=== PATIENT | female | born 1955 | race Caucasian/White ===

== ENCOUNTER → 2016-04-14 | Outpatient (CLI) | payer OTHER ==
[~2016-04-14] MED LIST: ALDA25TA2 PO; ASPI81TA85 PO; AZIT500I PO; EXCETAB80 PO; FERR325T3 PO; FURO20VL PO; HYDR12.56 PO; LISI5TAB PO; NEXI40GR PO; SUDA30TA PO; VITA500C PO
--- NOTE | 2016-04-14 14:36 | REPMRS ---
Patient History The patient states she had a clinical breast exam in 04/27 Patient is postmenopausal. Family history of pancreatic cancer in sister at age 54. Digital Woman Screen Mammo: April 14, 2016 - Exam #: [id number] Bilateral CC and MLO view(s) were taken. Technologist: Samantha Lynn, Technologist Prior study comparison: February 25, 2015, digital woman screen mammo performed at [facility]. FINDINGS: There are scattered fibroglandular densities. There has been no change in the appearance of the mammogram from the prior studies. There is a mild amount of residual fibroglandular tissue which is fairly symmetric. There is no interval development of dominant mass, architectural distortion, or clustered microcalcification suggestive of malignancy. ASSESSMENT: BI-RADS/ACR category 1 mammogram. Negative. Recommendation Routine screening mammogram in 1 year (for women over age 40). This mammogram was interpreted with the aid of an FDA-approved computer-aided dectection system. Electronically Signed By: Sukhjinder Cerrato MD 04/14/16 [id number]
== END ==
LOC: M WHC 13:10
PROVIDERS: ATTEND Nurse Practitioner Family
DX: Z12.31 Encounter for screening mammogram for malignant neoplasm of breast (principal)

== ENCOUNTER → 2017-05-16 | Outpatient (CLI) | payer OTHER | LOC: M WHC 15:03 | DX: Z12.31 Encounter for screening mammogram for malignant neoplasm of breast (principal) | CPT/HCPCS: 77067 ==

== ENCOUNTER 2018-08-03 20:02 | Observation (INO) | payer OTHER ==
[~2018-08-03] VITALS: Ht 162.6 cm; Wt 104.8 kg
[~2018-08-03 20:02] MED LIST changes: -ECOT81TA5 PO; -LISI20TA PO; -OMEP-221 PO; -RANI15TA PO
[2018-08-03] MEDS ORDERED: RANI15TA PO (20:09)
[2018-08-03 21:01] LABS: BASO # 0.1 10^3/uL (0.0-0.2); BASO % 0.7 % (0.0-1.0); EOS # 0.1 10^3/uL (0.0-0.50); EOS % 1.4 % (0.0-3.0); HEMATOCRIT 24.1 % (36.0-47.0); LYMPH # 1.7 10^3/uL (1.5-4.5); LYMPH % 22.6 % (24.0-44.0); MEAN CORPUSCULAR HEMOGLOBIN 18.1 pg (27.0-33.0); MEAN CORPUSCULAR HGB CONC 27.4 g/dl (32.0-36.5); MONO # 0.7 10^3/uL (0.0-0.8); MONO % 9.6 % (0.0-5.0); NEUTROPHILS # 4.8 10^3/uL (1.8-7.7); NEUTROPHILS % 65.3 % (36.0-66.0); PLATELET COUNT, AUTOMATED 239 10^3/uL (150-450); RED BLOOD COUNT 3.65 10^6/uL (4.00-5.40); WHITE BLOOD COUNT 7.4 10^3/uL (4.0-10.0)
[2018-08-03 21:05] LABS: HEMOGLOBIN 6.6 g/dl (12.0-15.5)
[2018-08-03 21:11] LABS: MB/CK RELATIVE INDEX 4.25 (< OR =4); TROPONIN I 0.11 NG/ML (< 0.10)
[2018-08-03] MEDS ORDERED: LISI20TA PO (21:23)
[2018-08-03] MEDS ORDERED: OMEP-221 PO (21:23)
[2018-08-03] MEDS ORDERED: ECOT81TA5 PO (21:23)
--- NOTE | 2018-08-03 22:28 | HPEPDOC ---
General Date of Admission Aug 03, 2018 at 21:36 Chief Complaint The patient is a 62-year-old female admitted with a reason for visit of Shortne ss Of Breath. Source: Patient History of Present Illness 63 y/o F with h/o chronic iron deficiency anemia who stopped iron supplements her own due to concern of side effect(hair fall); pt went to see her PMD today for c/o worsening exertional shortness of breath for past 3 months. Pt was found with low Hb and was sent to ER for blood transfusion. In ER pt was found with vitals of BP 186/90, HR 68, RR 18, Temp 98.0, SpO2-96% on RA; EKG- NSR, Troponin 0.11; Hospitalist service was consulted to admit the pt for further management. Pt was seen and examined at bedside in ER. Daughter at bedside. Pt was resting comfortably in bed. Pt stated that she is feeling fine but c/o exertional shortness of breath. PMH- HTN, GERD, iron deficiency anemia PSxH- C section, tubal ligation Allergies- NKDA Home meds- reviewed, please refer to permanent medical records. 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 FH- reviewed non contributory Home Medications Scheduled Aspirin (Ecotrin) 81 Mg Tablet.dr, 81 MG PO DAILY, (Reported) Lisinopril/Hydrochlorothiazide (Lisinopril-Hctz 20-12.5 mg Tab) 1 Each Tablet, 1 TAB PO DAILY, (Reported) Omeprazole (Omeprazole) 40 Mg Capsule.dr, 40 MG PO DAILY, (Reported) Ranitidine Hcl (Ranitidine HCl) 150 Mg Tablet, 150 MG PO QPM, (Reported) Allergies Coded Allergies: No Known Allergies (Verified , 04/06/12) A-FIB/CHADSVASC A-FIB History Current/History of A-Fib/PAF?: No Current Oral Anticoagulant The: No Physical Examination General Exam: Positive: Alert ENT Exam: Positive: Mucous membr. moist/pink Neck Exam: Positive: Supple Chest Exam: Positive: Clear to auscultation, Normal air movement Heart Exam: Positive: Rate Normal, Normal S1, Normal S2 Abdomen Exam: Positive: Normal bowel sounds, Soft, Tenderness Extremity Exam: Positive: Normal pulses Skin Exam: Positive: Nl turgor and temperature Neuro Exam: Positive: Normal Speech, Strength at 5/5 X4 ext Psych Exam: Positive: Mood NL, Oriented x 3 Vital Signs Vital Signs Date Time Temp Pulse Resp B/P (MAP) Pulse Ox O2 Delivery O2 Flow Rate FiO2 08/03/18 21:02 65 18 97 Room Air 08/03/18 20:26 08/03/18 20:03 98.0 Laboratory Data Labs 24H Laboratory Tests 2 08/03/18 20:25: Immature Granulocyte % (Auto) 0.4, White Blood Count 7.4, Red Blood Count 3.65L, Hemoglobin 6.6*L, Hematocrit 24.1L, Mean Corpuscular Volume 66.0L, Mean Corpuscular Hemoglobin 18.1L, Mean Corpuscular Hemoglobin Concent 27.4L, Red Cell Distribution Width 17.7H, Platelet Count 239, Neutrophils (%) (Auto) 65.3, Lymphocytes (%) (Auto) 22.6L, Monocytes (%) (Auto) 9.6H, Eosinophils (%) (Auto) 1.4, Basophils (%) (Auto) 0.7, Neutrophils # (Auto) 4.8, Lymphocytes # (Auto) 1.7, Monocytes # (Auto) 0.7, Eosinophils # (Auto) 0.1, Basophils # (Auto) 0.1, Reticulocyte # (auto) 58.6, Nucleated Red Blood Cells % (auto) 0.0, Percent Reticulocyte Count 1.6H, Reticulocyte Hemoglobin Equivalent 15.8L, Total Creatine Kinase 47, Creatine Kinase MB 2.0, Creatine Kinase MB Relative Index 4.25H, Troponin I 0.11H CBC/BMP Laboratory Tests 08/03/18 20:25 Red Blood Count 3.65 L, Mean Corpuscular Volume 66.0 L, Mean Corpuscular Hemoglobin 18.1 L, Mean Corpuscular Hemoglobin Concent 27.4 L, Red Cell Distribution Width 17.7 H, Neutrophils (%) (Auto) 65.3, Lymphocytes (%) (Auto) 22.6 L, Monocytes (%) (Auto) 9.6 H, Eosinophils (%) (Auto) 1.4, Basophils (%) (Auto) 0.7, Neutrophils # (Auto) 4.8, Lymphocytes # (Auto) 1.7, Monocytes # (Auto) 0.7, Eosinophils # (Auto) 0.1, Basophils # (Auto) 0.1 Assessment/Plan 62 y/o F with h/o iron deficiency anemia was found to have low Hb. Pt denied black tarry stools. Stool occult blood test performed in ER was negative. There are no sign and symptom suggestive of active bleeding. Pt had normal bowel movement today morning. Labs reviewed. Hb 6.6 Plats 239 Pt had colonoscopy/EGD in 2011 for anemia- as per pt it was "Normal" Impression- symptomatic anemia secondary to worsening of chronic anemia. Problems (1) Symptomatic anemia Status: Acute Problem Text: will transfuse 3 units PRBC will f/u repeat H/H o/p hematology f/u (2) HTN (hypertension) Status: Chronic Problem Text: will resume home meds If BP remains elevated will consider adding new antihypertensive (3) GERD (gastroesophageal reflux disease) Status: Chronic Problem Text: home meds (4) Elevated troponin Status: Chronic Problem Text: on review of prior labs it was found out that pt does have chronic mild elevation of troponin. Might be related to demand ischemia will f/u repeat troponin, telemetry (5) Obesity Status: Chronic Problem Text: supportive care (6) Iron deficiency anemia Status: Chronic Problem Text: Pt does not want iron supplement. o/p hematology f/u Plan / VTE VTE Prophylaxis Ordered?: No VTE Exclusion Pharmacological: At Low Risk for VTE SKIP RAMIRES MD Aug 03, 2018 22:25
[2018-08-03 23:20] VITALS: BP 202/78
[2018-08-04] MEDS ORDERED: cloNIDine 0.1 MG TAB PO ONE (00:30)
[2018-08-04 01:54] LABS: INR 1.03; PROTHROMBIN TIME 13.6 SECONDS (12.1-14.4)
[2018-08-04 01:55] LABS: PARTIAL THROMBOPLASTIN TIME 27.5 SECONDS (25.4-37.6)
[2018-08-04] MEDS ORDERED: **hydrALAZINE** 10 MG TAB PO ONE (02:30)
[2018-08-04 08:55] VITALS: BP 181/70
[2018-08-04] MEDS ORDERED: OMEPRAZOLE 20 MG CAP PO SCH (09:00)
[2018-08-04] MEDS ORDERED: LISINOPRIL 20 MG TAB PO SCH (09:00)
[2018-08-04] MEDS ORDERED: ASPIRIN 81 MG ENTERIC TAB PO SCH (09:00)
[2018-08-04] MEDS ORDERED: hydroCHLOROthiazide 12.5 MG CAPSULE PO SCH (09:00)
--- NOTE | 2018-08-04 11:14 | IPNPDOC ---
Subjective Date Seen The patient was seen on 08/04/18. Subjective Chief Complaint/HPI Receiving her last unit (06/11) of PRBC - tolerating this well. No further SOB Constitutional: Denies: Chills, Fever Pulmonary: Denies: Dyspnea, Cough Cardiovascular: Denies: Chest Pain, Palpitations, Orthopnea Gastrointestinal: Denies: Nausea, Vomiting, Abdominal Pain, Diarrhea, Constipation, Melena, Hematochezia Genitourinary: Denies: Hematuria Objective Physical Examination General Exam: Positive: Alert ENT Exam: Positive: Mucous membr. moist/pink Neck Exam: Positive: Supple Chest Exam: Positive: Clear to auscultation, Normal air movement Heart Exam: Positive: Rate Normal, Normal S1, Normal S2 Abdomen Exam: Positive: Normal bowel sounds, Soft, Tenderness Extremity Exam: Positive: Normal pulses Skin Exam: Positive: Nl turgor and temperature Neuro Exam: Positive: Normal Speech, Strength at 5/5 X4 ext Psych Exam: Positive: Mood NL, Oriented x 3 A-FIB/CHADSVASC A-FIB History Current/History of A-Fib/PAF?: No Current Oral Anticoagulant The: No Assessment /Plan Problems (1) Symptomatic anemia Status: Acute Problem Text: 08/04 - receiving 3rd unti PRBC currently - get f/u CBC after that. No further dyspnea Patient denies any GI bleeding. She does have intermittent episodes of dysphasia in which food gets stuck in her esophagus and she has to vomit to clear it out. She will need EGD/Colonoscopy as outpatient (Last one in 2011) Restart iron supplement Plan outpatient hematology eval possibly ass well Patient wants to go home today after 3rd unit. (2) HTN (hypertension) Status: Chronic Problem Text: Home BP meds given at 9 am If BP remains elevated will consider adding new antihypertensive (3) GERD (gastroesophageal reflux disease) Status: Chronic Problem Text: Dysphasia as above - cont PPI and Ranitidine Will need EGD as outpatient (4) Elevated troponin Status: Chronic Problem Text: on review of prior labs it was found out that pt does have chronic mild elevation of troponin. Might be related to demand ischemia will f/u repeat troponin, telemetry (5) Obesity Status: Chronic Problem Text: supportive care (6) Iron deficiency anemia Status: Chronic Problem Text: Pt does not want iron supplement. o/p hematology f/u Plan/VTE VTE Prophylaxis Ordered?: No VTE Exclusion Pharmacological: At Low Risk for VTE Plan Family Medicine Attending Note: I saw and examined Ms. Catalan, discussed with DORON Soriano. Agree with her note as documented. I will assess her response to transfusion after the third unit is in to determine whether it safe to go home today. 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) Disposition Patient wants to go home after 3 rd unit blood - defer to attending depending on Hgb and BP this afternoon VS, I&O, 24H, Fishbone Vital Signs/I&O Vital Signs Date Time Temp Pulse Resp B/P (MAP) Pulse Ox O2 Delivery O2 Flow Rate FiO2 08/04/18 08:55 181/70 08/03/18 23:20 97.8 67 20 100 08/03/18 22:35 Room Air I&O- Last 24 Hours up to 6 AM 08/04/18 06:00 Intake Total 300 ml Output Total 300 ml Balance 0 ml Laboratory Data 24H LABS Laboratory Tests 2 08/03/18 20:25: Immature Granulocyte % (Auto) 0.4, White Blood Count 7.4, Red Blood Count 3.65L, Hemoglobin 6.6*L, Hematocrit 24.1L, Mean Corpuscular Volume 66.0L, Mean Corpuscular Hemoglobin 18.1L, Mean Corpuscular Hemoglobin Concent 27.4L, Red Cell Distribution Width 17.7H, Platelet Count 239, Neutrophils (%) (Auto) 65.3, Lymphocytes (%) (Auto) 22.6L, Monocytes (%) (Auto) 9.6H, Eosinophils (%) (Auto) 1.4, Basophils (%) (Auto) 0.7, Neutrophils # (Auto) 4.8, Lymphocytes # (Auto) 1.7, Monocytes # (Auto) 0.7, Eosinophils # (Auto) 0.1, Basophils # (Auto) 0.1, Reticulocyte # (auto) 58.6, Nucleated Red Blood Cells % (auto) 0.0, Percent Reticulocyte Count 1.6H, Reticulocyte Hemoglobin Equivalent 15.8L, Total Creatine Kinase 47, Creatine Kinase MB 2.0, Creatine Kinase MB Relative Index 4.25H, Troponin I 0.11H 08/04/18 01:08: Troponin I 0.10, Prothrombin Time 13.6, Prothromb Time International Ratio 1.03, Activated Partial Thromboplast Time 27.5 CBC/BMP Laboratory Tests 08/03/18 20:25 Red Blood Count 3.65 L, Mean Corpuscular Volume 66.0 L, Mean Corpuscular Hemoglobin 18.1 L, Mean Corpuscular Hemoglobin Concent 27.4 L, Red Cell Distribution Width 17.7 H, Neutrophils (%) (Auto) 65.3, Lymphocytes (%) (Auto) 22.6 L, Monocytes (%) (Auto) 9.6 H, Eosinophils (%) (Auto) 1.4, Basophils (%) (Auto) 0.7, Neutrophils # (Auto) 4.8, Lymphocytes # (Auto) 1.7, Monocytes # (Auto) 0.7, Eosinophils # (Auto) 0.1, Basophils # (Auto) 0.1 JUNIE LEE PA-C Aug 04, 2018 11:14 Ruben Nugent MD Aug 04, 2018 18:09
[2018-08-04 14:00] VITALS: BP_SYST 142; BP_SYST 179; BP_DIAS 81; BP_DIAS 82
[2018-08-04 14:44] LABS: HEMATOCRIT 36.7 % (36.0-47.0); MEAN CORPUSCULAR HGB CONC 29.7 g/dl (32.0-36.5); MEAN CORPUSCULAR VOLUME 70.6 fl (80.0-96.0); PLATELET COUNT, AUTOMATED 234 10^3/uL (150-450); WHITE BLOOD COUNT 8.2 10^3/uL (4.0-10.0)
[2018-08-04 14:47] LABS: HEMOGLOBIN 10.9 g/dl (12.0-15.5)
[2018-08-04 15:16] LABS: BLOOD UREA NITROGEN 12 MG/DL (7-18); CALCIUM LEVEL 9.2 MG/DL (8.8-10.2); CARBON DIOXIDE LEVEL 26 MEQ/L (21-32); CHLORIDE LEVEL 109 MEQ/L (98-107); CREATININE FOR GFR 0.97 MG/DL (0.55-1.30); GLOMERULAR FILTRATION RATE > 60.0 (>45); GLUCOSE, FASTING 112 MG/DL (70-100); POTASSIUM SERUM 3.9 MEQ/L (3.5-5.1); SODIUM LEVEL 140 MEQ/L (136-145)
--- NOTE | 2018-08-04 18:06 | DS.PDOC ---
Discharge Summary General Date of Admission Aug 03, 2018 at 21:36 Date of Discharge 08/04/18 Primary Care Physician: Benitez Andujar M.D. Attending Physician: Ruben Nugent MD Discharge Summary ADMITTING DIAGNOSES: 1. Symptomatic anemia. 2. Hypertension. 3. GERD. 4. Elevated troponin I. 5. Obesity. 6. Iron deficiency anemia. DISCHARGE DIAGNOSES: 1. Symptomatic anemia, much improved after 3 units of packed red blood cells were transfused. 2. Hypertension. 3. Elevated troponin I, subsequent value was negative and this is felt to be related to demand ischemia. 4. Iron deficiency anemia. 5. Obesity. PROCEDURES PERFORMED DURING STAY: None. ADMISSION HISTORY: Ms. Catalan is a 63 y/o F with h/o chronic iron deficiency anemia who stopped iron supplements her own due to concern of side effect(hair falling out); pt went to see her PMD today for c/o worsening exertional shortness of breath for past 3 months. Pt was found with low Hb and was sent to ER for blood transfusion. Please see the admission history and physical for the remaining details. HOSPITAL COURSE: Mrs. Catalan was admitted to the hospital with symptomatic anemia and elevated blood pressure. There was also some concern that she may be having ongoing myocardial dysfunction as she had a very mildly elevated troponin I. Subsequent troponin was negative and the belief is that the first mildly elevated value is related to demand ischemia related to her severe anemia. She received 3 units of packed blood cells and felt much better. She was insistent on going home after her repeat CBC. Her hemoglobin improved from 6.6 up to 10.9. Her aspirin was stopped today. DISCHARGE CONDITION: Stable. FOLLOW-UP: Prior to discharge an appointment was encouraged to scheduled a follow-up appointment with or Gardenia Cho NP. She will need to call the office for a follow-up appointment on Tuesday. DIET: Low-sodium. ACTIVITY: Tolerated. DISCHARGE MEDICATIONS: Please see below. ALLERGIES: Please see below. LABORATORY DATA: Please see below. TIME SPENT ON DISCHARGE: Greater than 20 minutes. Vital Signs/I&Os Vital Signs Date Time Temp Pulse Resp B/P (MAP) Pulse Ox O2 Delivery O2 Flow Rate FiO2 08/04/18 14:00 98.4 81 19 142/82 (102) 99 08/03/18 22:35 Room Air I&O- Last 24 Hours up to 6 AM 08/04/18 06:00 Intake Total 300 ml Output Total 300 ml Balance 0 ml Laboratory Data Labs 24H Laboratory Tests 2 08/03/18 20:25: Immature Granulocyte % (Auto) 0.4, White Blood Count 7.4, Red Blood Count 3.65L, Hemoglobin 6.6*L, Hematocrit 24.1L, Mean Corpuscular Volume 66.0L, Mean Corpuscular Hemoglobin 18.1L, Mean Corpuscular Hemoglobin Concent 27.4L, Red Cell Distribution Width 17.7H, Platelet Count 239, Neutrophils (%) (Auto) 65.3, Lymphocytes (%) (Auto) 22.6L, Monocytes (%) (Auto) 9.6H, Eosinophils (%) (Auto) 1.4, Basophils (%) (Auto) 0.7, Neutrophils # (Auto) 4.8, Lymphocytes # (Auto) 1.7, Monocytes # (Auto) 0.7, Eosinophils # (Auto) 0.1, Basophils # (Auto) 0.1, Reticulocyte # (auto) 58.6, Nucleated Red Blood Cells % (auto) 0.0, Percent Reticulocyte Count 1.6H, Reticulocyte Hemoglobin Equivalent 15.8L, Total Creatine Kinase 47, Creatine Kinase MB 2.0, Creatine Kinase MB Relative Index 4.25H, Troponin I 0.11H 08/04/18 01:08: Troponin I 0.10, Prothrombin Time 13.6, Prothromb Time International Ratio 1.03, Activated Partial Thromboplast Time 27.5 08/04/18 14:30: Nucleated Red Blood Cells % (auto) 0.0, Anion Gap 5L, Glomerular Filtration Rate > 60.0, Blood Urea Nitrogen 12, Creatinine 0.97, Sodium Level 140, Potassium Level 3.9, Chloride Level 109H, Carbon Dioxide Level 26, Calcium Level 9.2 CBC/BMP Laboratory Tests 08/03/18 20:25 Red Blood Count 3.65 L, Mean Corpuscular Volume 66.0 L, Mean Corpuscular Hemoglobin 18.1 L, Mean Corpuscular Hemoglobin Concent 27.4 L, Red Cell Distribution Width 17.7 H, Neutrophils (%) (Auto) 65.3, Lymphocytes (%) (Auto) 22.6 L, Monocytes (%) (Auto) 9.6 H, Eosinophils (%) (Auto) 1.4, Basophils (%) (Auto) 0.7, Neutrophils # (Auto) 4.8, Lymphocytes # (Auto) 1.7, Monocytes # (Auto) 0.7, Eosinophils # (Auto) 0.1, Basophils # (Auto) 0.1 08/04/18 14:30 Red Blood Count 5.20, Mean Corpuscular Volume 70.6 L, Mean Corpuscular Hemoglobin 21.0 L, Mean Corpuscular Hemoglobin Concent 29.7 L, Red Cell Distribution Width 21.8 H, Calcium Level 9.2 Discharge Medications Scheduled Lisinopril/Hydrochlorothiazide (Lisinopril-Hctz 20-12.5 mg Tab) 1 Each Tablet, 1 TAB PO DAILY, (Reported) Omeprazole (Omeprazole) 40 Mg Capsule.dr, 40 MG PO DAILY, (Reported) Ranitidine Hcl (Ranitidine HCl) 150 Mg Tablet, 150 MG PO QPM, (Reported) Allergies Coded Allergies: No Known Allergies (Verified , 04/06/12) Ruben Nugent MD Aug 04, 2018 18:06
--- NOTE | 2018-08-04 19:45 | ECGEPIP ---
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
[2018-08-04] MEDS ORDERED: FAMOTIDINE 20 MG TAB PO SCH (21:00)
== END 2018-08-04 18:43 | disposition home or self-care (01) ==
LOC: M ED 20:02 → M ED INP 21:36 → M MSPAV 23:19
PROVIDERS: ADMIT Internal Medicine; ATTEND Internal Medicine
DX: D50.9 Iron deficiency anemia, unspecified (principal); I10 Essential (primary) hypertension; R74.8 Abnormal levels of other serum enzymes; E66.9 Obesity, unspecified; Z68.39 Body mass index [BMI] 39.0-39.9, adult; K21.9 Gastro-esophageal reflux disease without esophagitis; R13.10 Dysphagia, unspecified; Z79.899 Other long term (current) drug therapy
CPT/HCPCS: 36415; 36430; 80048; 82550; 82553; 85025; 85027; 85046; 85610; 85730; 86850; 86900; 86901; 86920; 93005; 99285; P9016

== ENCOUNTER → 2018-08-03 | Outpatient (REF) | payer OTHER ==
[~2018-08-03] MED LIST changes: +ECOT81TA5 PO; +FURO10IN17 PO; -FURO20VL PO; +LISI20TA PO; +OMEP-221 PO; +RANI15TA PO
[2018-08-03 17:19] LABS: ALBUMIN 3.6 GM/DL (3.2-5.2); ALT/SGPT 15 U/L (12-78); BASO % 0.3 % (0.0-1.0); BILIRUBIN,TOTAL 0.6 MG/DL (0.2-1.0); BLOOD UREA NITROGEN 12 MG/DL (7-18); CALCIUM LEVEL 8.6 MG/DL (8.8-10.2); CARBON DIOXIDE LEVEL 28 MEQ/L (21-32); CHLORIDE LEVEL 107 MEQ/L (98-107); CHOLESTEROL LEVEL 148 MG/DL (<200); CREATININE FOR GFR 0.94 MG/DL (0.55-1.30); EOS # 0.1 10^3/uL (0.0-0.50); FERRITIN 3 NG/ML (8-252); FREE T4 1.26 NG/DL (0.76-1.46); GLOMERULAR FILTRATION RATE > 60.0 (>45); GLUCOSE, FASTING 98 MG/DL (70-100); HDL CHOLESTEROL 55 MG/DL (>40); HEMATOCRIT 23.9 % (36.0-47.0); IRON (FE) 16 UG/DL (50-170); LDL CHOLESTEROL 75.4 MG/DL (<100); LYMPH # 1.3 10^3/uL (1.5-4.5); LYMPH % 21.6 % (24.0-44.0); MEAN CORPUSCULAR HEMOGLOBIN 18.1 pg (27.0-33.0); MEAN CORPUSCULAR HGB CONC 27.2 g/dl (32.0-36.5); MEAN CORPUSCULAR VOLUME 66.6 fl (80.0-96.0); MONO # 0.4 10^3/uL (0.0-0.8); MONO % 7.4 % (0.0-5.0); NEUTROPHILS % 69.5 % (36.0-66.0); NON-HDL-C 93 MG/DL; PERCENT SATURATION 3.2 % (13.2-45.0); PLATELET COUNT, AUTOMATED 243 10^3/uL (150-450); RED BLOOD COUNT 3.59 10^6/uL (4.00-5.40); SODIUM LEVEL 139 MEQ/L (136-145); THYROID STIMULATING HORMONE 0.938 uIU/ML (0.358-3.740); TOTAL IRON BINDING CAPACITY 502 UG/DL (250-450); TOTAL PROTEIN 6.6 GM/DL (6.4-8.2); TRIGLYCERIDES LEVEL 88 MG/DL (<150); WHITE BLOOD COUNT 5.8 10^3/uL (4.0-10.0)
[2018-08-03 17:22] LABS: HEMOGLOBIN A1c 5.7 %
[2018-08-03 18:01] LABS: HEMOGLOBIN 6.5 g/dl (12.0-15.5)
== END ==
LOC: M SFHCPLAZ 13:12
PROVIDERS: ATTEND Physician Assistant Medical
DX: Z13.220 Encounter for screening for lipoid disorders (principal); Z77.22 Contact with and (suspected) exposure to environmental tobacco smoke (acute) (chronic); I10 Essential (primary) hypertension; K21.0 Gastro-esophageal reflux disease with esophagitis; E66.01 Morbid (severe) obesity due to excess calories

== ENCOUNTER → 2018-08-21 | Outpatient (CLI) | payer OTHER ==
[~2018-08-21] MED LIST changes: +E-Z-GAS II EFFERVESCENT PACKET (SODIUM BICARB./CITRIC ACID/SIMETHICONE) As Ordered ONE; +E-Z-HD 98% w/w 340GM SUSP BTL As Ordered ONE; +E-Z-PAQUE 96% w/w SUSP 176GM BTL As Ordered ONE; +ECOT81TA5 PO; +LISI20TA PO; +OMEP-221 PO; +RANI15TA PO
--- NOTE | 2018-08-21 19:13 | REP ---
Upper GI Air Contrast with SBFT The procedure was performed by ZAKIYA Cruz, under the the direct supervision of Dr. Hernandez. The images were reviewed with Dr. Hernandez. The district court reporter film shows normal organomegaly or pathological masses. The intestinal gas pattern appears normal. Liquid barium and gas producing crystals were given in the erect position as well as liquid barium in the prone position in order to perform a double contrast upper GI examination. The oral and pharyngeal stages of deglutition were unremarkable. Esophageal transport is efficient and there is no esophagitis, stricture, or mucosal ring noted. There is a fairly large hiatal hernia that involves a majority of the fundus of the stomach. Gastroesophageal reflux was noted as well. The stomach brewer are normally outlined. The rugal folds are smooth and regular. There is no gastritis, neoplasm, ulcer disease noted. The duodenal brewer are normally outlined. The mucosal folds are smooth and regular. There is no duodenitis, peptic ulcer disease, or neoplasm noted. The visualized portion of the proximal small bowel appears normal in course and caliber. The barium column was followed through the small bowel to the level of the terminal ileum. Small bowel transit time was approximately 20 minutes. During fluoroscopy gentle palpation shows all loops are freely mobile and pliable. There are no fixed or angulated loops. The small bowel mucosal pattern is normal in course and caliber. There is no transition to set suggest a partial small-bowel obstruction. Spot filming of the terminal ileum shows it to be unremarkable. Impression; 1. Large size hiatal hernia involving a majority of the fundus of the stomach. 2. Gastroesophageal reflux 1.2 minutes of fluoroscopy time was utilized for this procedure. Reviewed by ZAKIYA Bishop 08/21/2018 11:56 A Electronically Signed by Shiraz Hernandez MD 08/21/2018 07:04 P
== END ==
LOC: M RAD 07:49
PROVIDERS: ATTEND Physician Assistant Medical
DX: K21.0 Gastro-esophageal reflux disease with esophagitis (principal); K44.9 Diaphragmatic hernia without obstruction or gangrene

== ENCOUNTER → 2018-09-25 | Outpatient (CLI) | payer OTHER ==
[~2018-09-25] MED LIST changes: -E-Z-GAS II EFFERVESCENT PACKET (SODIUM BICARB./CITRIC ACID/SIMETHICONE) As Ordered ONE; -E-Z-HD 98% w/w 340GM SUSP BTL As Ordered ONE; -E-Z-PAQUE 96% w/w SUSP 176GM BTL As Ordered ONE
--- NOTE | 2018-09-25 15:15 | REPMRS ---
Patient History The patient states she had a clinical breast exam in 08/2018. Family history of pancreatic cancer at age 54 in sister. 3D TOMOSYNTHESIS WAS PERFORMED. The [facility] lifetime risk for breast cancer is 6.9%. Digital Woman Screen Mammo: September 25, 2018 - Exam #: [id number] Bilateral CC and MLO view(s) were taken. Technologist: Samantha Lynn, Technologist Prior study comparison: May 16, 2017, digital woman screen mammo performed at [facility]. April 14, 2016, digital woman screen mammo performed at [facility]. FINDINGS: There are scattered fibroglandular densities. There has been no change in the appearance of the mammogram from the prior studies. There is a mild amount of residual fibroglandular tissue which is fairly symmetric. There is no interval development of dominant mass, architectural distortion, or clustered microcalcification suggestive of malignancy. Assessment: BI-RADS/ACR category 1 mammogram. Negative Mammogram. Recommendation Routine screening mammogram in 1 year (for women over age 40). This mammogram was interpreted with the aid of an FDA-approved computer-aided dectection system. Electronically Signed By: Sukhjinder Cerrato MD 09/25/18 0636
== END ==
LOC: M WHC 14:15
PROVIDERS: ATTEND Physician Assistant Medical
DX: Z12.31 Encounter for screening mammogram for malignant neoplasm of breast (principal); Z80.0 Family history of malignant neoplasm of digestive organs

== ENCOUNTER 2018-10-19 10:38 | Emergency (ER) | payer OTHER ==
[~2018-10-19] VITALS: Ht 162.6 cm; Wt 102.8 kg
[2018-10-19] MEDS ORDERED: FERR32TA (10:48)
[2018-10-19] MEDS ORDERED: KETOROLAC 60 MG/2 ML VIAL (J1885) IM ONE (12:15)
--- NOTE | 2018-10-19 13:23 | REP ---
Pelvis/right hip: Three views. History: Right hip pain. The patient describes feeling a pop while walking. Findings: AP and frog-leg views of the right hip demonstrate smooth rounded femoral head and intact hip joint space. Periarticular soft tissues are unremarkable. There is some tendon insertion site spurring on the greater trochanter. Mild degenerative sclerosis is seen at the symphysis pubis. Bony pelvic ring is intact. SI joints are unremarkable. Left hip is normal in appearance. Impression: Tendon insertion site spurring greater trochanter right hip. Sclerosis in the symphysis pubis. Otherwise negative hip and pelvic radiographs. Electronically Signed by Shiraz Hernandez MD 10/19/2018 05:09 P
[2018-10-19] MEDS ORDERED: NAPR-837 PO (14:01)
[2018-10-19] MEDS ORDERED: LIDO1CRE2 TOP (14:01)
[2018-10-19 14:14] VITALS: BP 224/105
--- NOTE | 2018-10-20 07:57 | ED PDOC ---
Post-Departure Follow-Up carol platt faxed formal report of hip/pelvis film for fu Ra Rasmussen MD Oct 20, 2018 07:57
== END 2018-10-19 14:16 | disposition home or self-care (01) ==
LOC: M ED 10:38
DX: M25.752 Osteophyte, left hip (principal); M85.30 Osteitis condensans, unspecified site; I10 Essential (primary) hypertension; Z79.899 Other long term (current) drug therapy
CPT/HCPCS: 73502; 96372; 99283; J1885

== ENCOUNTER → 2018-11-07 | Outpatient (REF) | payer OTHER ==
[~2018-11-07] MED LIST changes: +FERR32TA; +LIDO1CRE2 TOP; +NAPR-837 PO
[2018-11-07 16:09] LABS: CREATININE FOR GFR 1.07 MG/DL (0.55-1.30); PERCENT SATURATION 7.6 % (13.2-45.0)
[2018-11-07 16:14] LABS: FOLATE 15.6 NG/ML
[2018-11-07 16:15] LABS: BASO % 0.4 % (0.0-1.0); EOS # 0.1 10^3/uL (0.0-0.50); EOS % 0.9 % (0.0-3.0); HEMATOCRIT 41.7 % (36.0-47.0); HEMOGLOBIN 12.6 g/dl (12.0-15.5); LYMPH # 1.3 10^3/uL (1.5-4.5); LYMPH % 18.2 % (24.0-44.0); MEAN CORPUSCULAR HGB CONC 30.2 g/dl (32.0-36.5); MEAN CORPUSCULAR VOLUME 82.7 fl (80.0-96.0); MONO # 0.3 10^3/uL (0.0-0.8); NEUTROPHILS # 5.2 10^3/uL (1.8-7.7); NEUTROPHILS % 75.2 % (36.0-66.0); PLATELET COUNT, AUTOMATED 204 10^3/uL (150-450); RED BLOOD COUNT 5.04 10^6/uL (4.00-5.40); WHITE BLOOD COUNT 6.9 10^3/uL (4.0-10.0)
[2018-11-11 00:06] LABS: ANTI-PARIETAL CELL ANTIBODY 1.4 Units (0.0-20.0); TISSUE TRANSGLUTAMINASE IgA <2 U/mL (0-3); UNITSIGA FOR GLIADIN IGA 5 units (0-19); UNITSIGG FOR GLIADIN IGG 2 units (0-19)
== END ==
LOC: M LABDRAWP 13:59
PROVIDERS: ATTEND Internal Medicine Gastroenterology
DX: D50.9 Iron deficiency anemia, unspecified (principal)

== ENCOUNTER 2018-11-17 09:03 | Day surgery (SDC) | payer OTHER ==
[~2018-11-17] VITALS: Ht 162.6 cm; Wt 100.2 kg
[~2018-11-17 09:03] MED LIST changes: -LISI20TA PO; +LISI20TA18 PO; +NS 1,000 ML IV ONE
[2018-11-17] MEDS ORDERED: PROPOFOL 200 MG/20 ML VIAL As Ordered ONE (09:05)
[2018-11-17] MEDS ORDERED: LIDOCAINE 2% INJ 100 MG/5 ML SDV (FOR ANES.) As Ordered ONE (09:18)
[2018-11-17] MEDS ORDERED: fentaNYL 100 MCG/2 ML INJECTION (J3010) As Ordered ONE (10:34)
--- NOTE | 2018-11-17 11:08 | ROOR ---
Patient Name: Samantha Catalan Procedure Date: 11/17/2018 10:10 AM Date of : 1955 Age: 63 Room: [facility] Gender: Female Note Status: Finalized Procedure: Upper GI endoscopy Indications: Iron deficiency anemia Providers: Chapito Sky MD Referring MD: Gardenia ALEXIS Requesting Provider: Medicines: Monitored Anesthesia Care Complications: No immediate complications. Procedure: Pre-Anesthesia Assessment: - Prior to the procedure, a History and Physical was performed, and patient medications and allergies were reviewed. The patient is competent. The risks and benefits of the procedure and the sedation options and risks were discussed with the patient. All questions were answered and informed consent was obtained. Patient identification and proposed procedure were verified by the physician, the nurse and the anesthesiologist in the procedure room. Mental Status Examination: alert and oriented. Airway Examination: normal oropharyngeal airway and neck mobility. Respiratory Examination: clear to auscultation. CV Examination: normal. Prophylactic Antibiotics: The patient does not require prophylactic antibiotics. Prior Anticoagulants: The patient has taken no previous anticoagulant or antiplatelet agents. ASA Grade Assessment: III - A patient with severe systemic disease. After reviewing the risks and benefits, the patient was deemed in satisfactory condition to undergo the procedure. The anesthesia plan was to use monitored anesthesia care (MAC). Immediately prior to administration of medications, the patient was re-assessed for adequacy to receive sedatives. The heart rate, respiratory rate, oxygen saturations, blood pressure, adequacy of pulmonary ventilation, and response to care were monitored throughout the procedure. The physical status of the patient was re-assessed after the procedure. The Endoscope was introduced through the mouth, and advanced to the second part of duodenum. The upper GI endoscopy was accomplished without difficulty. The patient tolerated the procedure well. Findings: The Z-line was regular and was found 35 cm from the incisors. A large hiatal hernia was present. Scattered moderate inflammation characterized by erythema, friability and granularity was found in the gastric antrum. Biopsies were taken with a cold forceps for Helicobacter pylori testing. The duodenal bulb and second portion of the duodenum were normal. Biopsies for histology were taken with a cold forceps for evaluation of celiac disease. Impression: - Z-line regular, 35 cm from the incisors. - Large hiatal hernia. - Gastritis. Biopsied. - Normal duodenal bulb and second portion of the duodenum. Biopsied. Recommendation: - Patient has a contact number available for emergencies. The signs and symptoms of potential delayed complications were discussed with the patient. Return to normal activities tomorrow. Written discharge instructions were provided to the patient. - Resume previous diet. - Continue present medications. - Follow an antireflux regimen. - Await pathology results. - Refer to a surgeon (Thoracic Surgeon) for evaluation for Hiatal hernia surgery. - Telephone GI clinic for pathology results in 2 weeks. - Return to primary care physician. Chapito Sky MD Chapito Sky MD 11/17/2018 11:07:33 AM Electronically signed by Chapito Sky MD Number of Addenda: 0 Note Initiated On: 11/17/2018 10:10 AM Estimated Blood Loss: Estimated blood loss was minimal.
--- NOTE | 2018-11-17 11:11 | ROOR ---
Patient Name: Samantha Catalan Procedure Date: 11/17/2018 10:10 AM Date of : 1955 Age: 63 Room: [facility] Gender: Female Note Status: Finalized Procedure: Colonoscopy Indications: Iron deficiency anemia Providers: Chapito Sky MD Referring MD: Gardenia ALEXIS Requesting Provider: Medicines: Monitored Anesthesia Care Complications: No immediate complications. Procedure: Pre-Anesthesia Assessment: - Prior to the procedure, a History and Physical was performed, and patient medications and allergies were reviewed. The patient is competent. The risks and benefits of the procedure and the sedation options and risks were discussed with the patient. All questions were answered and informed consent was obtained. Patient identification and proposed procedure were verified by the physician, the nurse and the anesthesiologist in the procedure room. Mental Status Examination: alert and oriented. Airway Examination: normal oropharyngeal airway and neck mobility. Respiratory Examination: clear to auscultation. CV Examination: normal. Prophylactic Antibiotics: The patient does not require prophylactic antibiotics. Prior Anticoagulants: The patient has taken no previous anticoagulant or antiplatelet agents. ASA Grade Assessment: III - A patient with severe systemic disease. After reviewing the risks and benefits, the patient was deemed in satisfactory condition to undergo the procedure. The anesthesia plan was to use monitored anesthesia care (MAC). Immediately prior to administration of medications, the patient was re-assessed for adequacy to receive sedatives. The heart rate, respiratory rate, oxygen saturations, blood pressure, adequacy of pulmonary ventilation, and response to care were monitored throughout the procedure. The physical status of the patient was re-assessed after the procedure. The Colonoscope was introduced through the anus and advanced to the terminal ileum, with identification of the appendiceal orifice and IC valve. The colonoscopy was performed without difficulty. The patient tolerated the procedure well. The quality of the bowel preparation was good. The terminal ileum, ileocecal valve, appendiceal orifice, and rectum were photographed. Scope insertion time was 3 minutes. Scope withdrawal time was 9 minutes. The total duration of the procedure was 12 minutes. Findings: The perianal and digital rectal examinations were normal. The terminal ileum appeared normal. Non-bleeding external and internal hemorrhoids were found during retroflexion. The hemorrhoids were large. No other significant abnormalities were identified in a careful examination of the remainder of the colon. Impression: - The examined portion of the ileum was normal. - Non-bleeding external and internal hemorrhoids. - No specimens collected. Recommendation: - Patient has a contact number available for emergencies. The signs and symptoms of potential delayed complications were discussed with the patient. Return to normal activities tomorrow. Written discharge instructions were provided to the patient. - High fiber diet. - Continue present medications. - Preparation H ointment: Apply externally daily for 1 week. - Repeat colonoscopy in 10 years for screening purposes. - Return to GI clinic in [facility] (address [address], [address], [place] [address]) in 4 -- 6 weeks. Please call GI clinic @ [phone] for apppointment date and time. - Check repeat labs for iron studies and CBC in 3 months after iron supplementation. - Return to primary care physician. Chapito Sky MD Chapito Sky MD 11/17/2018 11:11:00 AM Electronically signed by Chapito Sky MD Number of Addenda: 0 Note Initiated On: 11/17/2018 10:10 AM Estimated Blood Loss: Estimated blood loss: none.
[2018-11-17 11:15] VITALS: BP 175/79
== END 2018-11-17 11:31 | disposition home or self-care (01) ==
LOC: M OPP 09:03
PROVIDERS: ATTEND Internal Medicine Gastroenterology
DX: D50.9 Iron deficiency anemia, unspecified (principal); K64.8 Other hemorrhoids; K44.9 Diaphragmatic hernia without obstruction or gangrene; K29.70 Gastritis, unspecified, without bleeding; I10 Essential (primary) hypertension; K21.9 Gastro-esophageal reflux disease without esophagitis; R06.02 Shortness of breath; Z79.899 Other long term (current) drug therapy
CPT/HCPCS: 43239; 45378; 88305; J3010

== ENCOUNTER → 2018-11-30 | Outpatient (REF) | payer OTHER ==
[~2018-11-30] MED LIST changes: -LISI20TA18 PO; +LISI20TA19 PO; -NS 1,000 ML IV ONE
[2018-11-30 18:40] LABS: BASO % 0.6 % (0.0-1.0); EOS # 0.1 10^3/uL (0.0-0.50); EOS % 1.6 % (0.0-3.0); HEMATOCRIT 38.8 % (36.0-47.0); HEMOGLOBIN 12.1 g/dl (12.0-15.5); LYMPH # 1.4 10^3/uL (1.5-4.5); LYMPH % 20.4 % (24.0-44.0); MEAN CORPUSCULAR HGB CONC 31.2 g/dl (32.0-36.5); MEAN CORPUSCULAR VOLUME 83.4 fl (80.0-96.0); MONO # 0.5 10^3/uL (0.0-0.8); MONO % 7.2 % (0.0-5.0); NEUTROPHILS # 4.9 10^3/uL (1.8-7.7); NEUTROPHILS % 69.8 % (36.0-66.0); PLATELET COUNT, AUTOMATED 204 10^3/uL (150-450); RED BLOOD COUNT 4.65 10^6/uL (4.00-5.40); WHITE BLOOD COUNT 7.1 10^3/uL (4.0-10.0)
[2018-11-30 18:57] LABS: ALBUMIN 3.6 GM/DL (3.2-5.2); ALT/SGPT 15 U/L (12-78); BILIRUBIN,TOTAL 0.4 MG/DL (0.2-1.0); BLOOD UREA NITROGEN 14 MG/DL (7-18); CALCIUM LEVEL 9.6 MG/DL (8.8-10.2); CARBON DIOXIDE LEVEL 30 MEQ/L (21-32); CHLORIDE LEVEL 105 MEQ/L (98-107); CREATININE FOR GFR 0.88 MG/DL (0.55-1.30); FERRITIN 5 NG/ML (8-252); GLOMERULAR FILTRATION RATE > 60.0 (>45); GLUCOSE, FASTING 101 MG/DL (70-100); IRON (FE) 31 UG/DL (50-170); NT-PRO BNP 166 PG/ML (<125); PERCENT SATURATION 7.2 % (13.2-45.0); POTASSIUM SERUM 4.2 MEQ/L (3.5-5.1); SODIUM LEVEL 141 MEQ/L (136-145); TOTAL IRON BINDING CAPACITY 431 UG/DL (250-450)
== END ==
LOC: M SFHCPLAZ 15:13
PROVIDERS: ATTEND Physician Assistant Medical
DX: I50.9 Heart failure, unspecified (principal); Z86.2 Personal history of diseases of the blood and blood-forming organs and certain disorders involving the immune mechanism

== ENCOUNTER → 2018-12-20 | Outpatient (REF) | payer OTHER ==
[2018-12-20 15:46] LABS: ALBUMIN 3.7 GM/DL (3.2-5.2); BILIRUBIN,TOTAL 0.5 MG/DL (0.2-1.0); CALCIUM LEVEL 9.7 MG/DL (8.8-10.2); CREATININE FOR GFR 1.01 MG/DL (0.55-1.30); GLOMERULAR FILTRATION RATE 58.7 (>45); POTASSIUM SERUM 4.2 MEQ/L (3.5-5.1); TOTAL PROTEIN 7.6 GM/DL (6.4-8.2)
== END ==
LOC: M SFHCPLAZ 13:35
PROVIDERS: ATTEND Physician Assistant Medical
DX: I10 Essential (primary) hypertension (principal)

== ENCOUNTER → 2019-01-26 | Outpatient (REF) | payer OTHER ==
[2019-01-26 13:50] LABS: APPEARANCE, URINE CLEAR (CLEAR); BACTERIA, URINE AUTO 1+ (NEGATIVE); BILIRUBIN, URINE AUTO NEGATIVE (NEGATIVE); BLOOD, URINE BLOOD 2+ (NEGATIVE); COLOR, URINE YELLOW (YELLOW); GLUCOSE, URINE (UA) AUTO NEGATIVE (NEGATIVE); KETONE, URINE AUTO NEGATIVE (NEGATIVE); LEUKOCYTE ESTERASE, URINE AUTO NEGATIVE (NEGATIVE); MUCUS, URINE SMALL (NEGATIVE); NITRITE, URINE AUTO NEGATIVE (NEGATIVE); PROTEIN, URINE AUTO NEGATIVE (NEGATIVE); RBC, URINE AUTO 2 /HPF (0-3); SPECIFIC GRAVITY URINE AUTO 1.009 (1.002-1.035); SQUAMOUS EPITHELIAL CELL UR AU 1 /HPF (0-6); UROBILINOGEN, URINE AUTO 0.2 mg/dL (0.0-2.0); WBC, URINE AUTO 1 /HPF (0-3)
== END ==
LOC: M SFHCPLAZ 13:22
PROVIDERS: ATTEND Nurse Practitioner Family
DX: N93.9 Abnormal uterine and vaginal bleeding, unspecified (principal)

== ENCOUNTER → 2019-02-08 | Outpatient (CLI) | payer OTHER ==
--- NOTE | 2019-02-08 14:07 | REP ---
Pelvic sonography: History: Evaluate uterus and ovaries. Vaginal bleeding. Comparison abdomen CT study July 25, 2012. Findings: Transabdominal and transvaginal scanning are performed. Uterine dimensions are normal at 6.4 x 3.7 x 4.3 cm. Endometrial echo 0.9 cm in thickness. Uterine texture is somewhat heterogeneous. No focal uterine mass is seen. Visualized urinary bladder brewer are smooth. There is no evidence of ovarian mass or cyst on either side. Right ovary dimensions are 5.2 x 2.4 x 2.1 cm. Left ovary measures 3.5 x 1.9 x 2.6 cm. Impression: No abnormality noted. Unreviewed
== END ==
LOC: M RAD 12:46
PROVIDERS: ATTEND Nurse Practitioner Family
DX: N93.9 Abnormal uterine and vaginal bleeding, unspecified (principal)

== ENCOUNTER → 2019-02-13 | Outpatient (REF) | payer OTHER | LOC: M SFHCWAGY 10:07 | PROVIDERS: ATTEND Nurse Practitioner Family | DX: Z12.4 Encounter for screening for malignant neoplasm of cervix (principal) ==

== ENCOUNTER → 2019-03-01 | Outpatient (REF) | payer OTHER ==
[2019-03-01 17:20] LABS: BASO % 0.6 % (0.0-1.0); EOS # 0.1 10^3/uL (0.0-0.5); EOS % 1.2 % (0.0-3.0); HEMATOCRIT 43.9 % (36.0-47.0); HEMOGLOBIN 13.6 g/dl (12.0-15.5); LYMPH # 1.6 10^3/uL (1.5-5.0); LYMPH % 22.2 % (24.0-44.0); MEAN CORPUSCULAR HEMOGLOBIN 27.7 pg (27.0-33.0); MEAN CORPUSCULAR VOLUME 89.4 fl (80.0-96.0); MONO # 0.5 10^3/uL (0.0-0.8); MONO % 6.8 % (0.0-5.0); NEUTROPHILS % 68.8 % (36.0-66.0); PLATELET COUNT, AUTOMATED 221 10^3/uL (150-450); RED BLOOD COUNT 4.91 10^6/uL (4.00-5.40); WHITE BLOOD COUNT 7.2 10^3/uL (4.0-10.0)
[2019-03-01 17:23] LABS: HEMATOCRIT 43.9 % (36.0-47.0)
[2019-03-01 17:44] LABS: ALBUMIN 3.6 GM/DL (3.2-5.2); ALT/SGPT 17 U/L (12-78); BILIRUBIN,TOTAL 0.4 MG/DL (0.2-1.0); BLOOD UREA NITROGEN 16 MG/DL (7-18); CALCIUM LEVEL 9.5 MG/DL (8.8-10.2); CARBON DIOXIDE LEVEL 28 MEQ/L (21-32); CHLORIDE LEVEL 108 MEQ/L (98-107); CREATININE FOR GFR 0.96 MG/DL (0.55-1.30); FERRITIN 10 NG/ML (8-252); GLOMERULAR FILTRATION RATE > 60.0 (>45); GLUCOSE, FASTING 149 MG/DL (70-100); IRON (FE) 44 UG/DL (50-170); POTASSIUM SERUM 3.8 MEQ/L (3.5-5.1); SODIUM LEVEL 142 MEQ/L (136-145); TOTAL PROTEIN 7.3 GM/DL (6.4-8.2)
[2019-03-01 17:49] LABS: FOLATE 13.7 NG/ML (>5.4); VITAMIN B12 LEVEL 249 PG/ML (247-911)
[2019-03-04 00:06] LABS: H PYLORI SERUM QUANT IGM <9.0 units (0.0-8.9); H PYLORI SERUM QUANT IgG ABY 1.44 (0.00-0.79)
== END ==
LOC: M SFHCPLAZ 15:40
PROVIDERS: ATTEND Physician Assistant Medical
DX: I10 Essential (primary) hypertension (principal); Z86.2 Personal history of diseases of the blood and blood-forming organs and certain disorders involving the immune mechanism; K21.0 Gastro-esophageal reflux disease with esophagitis

== ENCOUNTER → 2019-04-05 | Outpatient (REF) | payer OTHER ==
[2019-04-05 15:26] LABS: BASO # 0.1 10^3/uL (0.0-0.2); BASO % 0.7 % (0.0-1.0); EOS # 0.1 10^3/uL (0.0-0.5); EOS % 1.4 % (0.0-3.0); HEMATOCRIT 43.2 % (36.0-47.0); HEMOGLOBIN 13.6 g/dl (12.0-15.5); LYMPH # 2.1 10^3/uL (1.5-5.0); LYMPH % 24.2 % (24.0-44.0); MEAN CORPUSCULAR HEMOGLOBIN 28.2 pg (27.0-33.0); MEAN CORPUSCULAR HGB CONC 31.5 g/dl (32.0-36.5); MEAN CORPUSCULAR VOLUME 89.4 fl (80.0-96.0); MONO # 0.6 10^3/uL (0.0-0.8); NEUTROPHILS # 5.9 10^3/uL (1.5-8.5); NEUTROPHILS % 66.4 % (36.0-66.0); PLATELET COUNT, AUTOMATED 225 10^3/uL (150-450); RED BLOOD COUNT 4.83 10^6/uL (4.00-5.40); WHITE BLOOD COUNT 8.8 10^3/uL (4.0-10.0)
[2019-04-05 15:32] LABS: FERRITIN 17 NG/ML (8-252); IRON (FE) 71 UG/DL (50-170)
== END ==
LOC: M SFHCPLAZ 13:46
PROVIDERS: ATTEND Physician Assistant Medical
DX: Z86.2 Personal history of diseases of the blood and blood-forming organs and certain disorders involving the immune mechanism (principal)

== ENCOUNTER → 2019-06-15 | Outpatient (REF) | payer OTHER | LOC: M SFHCWAGY 19:30 | PROVIDERS: ATTEND Nurse Practitioner Family | DX: R87.615 Unsatisfactory cytologic smear of cervix (principal); N85.01 Benign endometrial hyperplasia ==

== ENCOUNTER → 2019-07-12 | Outpatient (CLI) | payer OTHER ==
--- NOTE | 2019-07-12 16:53 | REP ---
PELVIC ULTRASOUND: Real-time sonographic evaluation of the pelvis performed utilizing transabdominal and endovaginal technique. Bladder is empty. Uterus measures 6.8 x 4.1 x 5.0 cm. Myometrial echotexture is diffusely heterogeneous. There is endometrial thickening, with maximum thickness 14 mm. I cannot exclude endometrial hyperplasia or neoplasm. Uterus is retroverted. Right ovary measures 4.6 x 1.8 x 2.0 cm. Left ovary measures 2.1 x 1.4 x 1.5 cm. There is a cystic structure along the margin of the right ovary 1.6 cm in diameter. There is no other evidence of adnexal mass. There is no free fluid. IMPRESSION: Thickened endometrium up to 14 mm in AP dimension. I cannot exclude endometrial hyperplasia or neoplasm. Consider endometrial sampling. There is a cystic structure along the margin of the right ovary 1.6 cm in diameter. This is of doubtful significance.
== END ==
LOC: M WHC 13:58
PROVIDERS: ATTEND Nurse Practitioner Family
DX: N85.01 Benign endometrial hyperplasia (principal)

== ENCOUNTER → 2019-07-24 | Outpatient (REF) | payer OTHER ==
[~2019-07-24] MED LIST changes: +CYAN500T8 PO; +MEDR10TA PO
== END ==
LOC: M SFHCPLAZ 12:25
PROVIDERS: ATTEND Family Medicine
DX: Z53.9 Procedure and treatment not carried out, unspecified reason (principal); I10 Essential (primary) hypertension; Z86.2 Personal history of diseases of the blood and blood-forming organs and certain disorders involving the immune mechanism

== ENCOUNTER → 2019-07-24 | Outpatient (CLI) | payer OTHER ==
[2019-07-24 15:36] LABS: BASO % 0.5 % (0.0-1.0); EOS # 0.1 10^3/uL (0.0-0.5); EOS % 0.8 % (0.0-3.0); HEMATOCRIT 42.4 % (36.0-47.0); LYMPH # 1.7 10^3/uL (1.5-5.0); LYMPH % 19.2 % (24.0-44.0); MEAN CORPUSCULAR HEMOGLOBIN 30.2 pg (27.0-33.0); MEAN CORPUSCULAR VOLUME 91.4 fl (80.0-96.0); MONO # 0.5 10^3/uL (0.0-0.8); MONO % 5.4 % (0.0-5.0); NEUTROPHILS # 6.4 10^3/uL (1.5-8.5); NEUTROPHILS % 73.8 % (36.0-66.0); PLATELET COUNT, AUTOMATED 230 10^3/uL (150-450); RED BLOOD COUNT 4.64 10^6/uL (4.00-5.40); WHITE BLOOD COUNT 8.7 10^3/uL (4.0-10.0)
[2019-07-24 16:02] LABS: PERCENT SATURATION 15.8 % (13.2-45.0)
[2019-07-24 16:10] LABS: FOLATE 14.7 NG/ML
== END ==
LOC: M LAB 14:22
PROVIDERS: ATTEND Internal Medicine Gastroenterology
DX: B96.81 Helicobacter pylori [H. pylori] as the cause of diseases classified elsewhere (principal)

== ENCOUNTER → 2019-07-25 | Outpatient (CLI) | payer OTHER ==
--- NOTE | 2019-07-25 22:44 | ECHO ---
DATE OF PROCEDURE: 07/25/2019 REFERRING PHYSICIAN: Benitez Andujar MD PATIENT LOCATION: Outpatient. REASON FOR STUDY: Aortic stenosis. 2D MEASUREMENTS: Aorta: 2.9 cm LA: 3.8 cm IVC: 0.9 cm DOPPLER MEASUREMENTS: Peak velocity across the aortic valve: 1.8 m/s Peak velocity across the LVOT: 1.2 m/s Peak gradient across the aortic valve: 13 mmHg Mean gradient across the aortic valve: 6 mmHg Mitral E: 0.8, Mitral A: 1.0 with a ratio of 0.8 2D COMMENTS: 1. Normal left ventricular size, wall thickness and normal global left ventricular systolic function. The estimated left ventricular systolic ejection fraction is 60 to 65%. 2. Normal left atrium. Normal right atrium and right ventricle. 3. The atrial septum appeared to be normal without evidence of defect or shunt. 4. Normal aortic root. 5. Trace to small pericardial effusion noted, no evidence of cardiac tamponade. 6. Mildly calcified aortic valve with normal leaflet excursion. Minimally calcified mitral annulus with normal anterior mitral valve leaflet motion. Normal tricuspid valve. The pulmonic valve also appeared to be normal as well as the proximal pulmonary artery branches. The inferior vena cava in limited views appeared to be normal in size. DOPPLER: Doppler detects trace mitral regurgitation. Trace pulmonic regurgitation also noted in limited views. Abnormal relaxation pattern was noted across the mitral valve leaflets as well as the mitral valve annulus consistent with features of grade 1 left ventricular diastolic dysfunction. IMPRESSION 1. Normal global left ventricular systolic function. There are some features of left ventricular diastolic dysfunction manifested by abnormal relaxation. 2. Aortic valve sclerosis without stenosis or aortic regurgitation. 3. Trace mitral regurgitation. 4. Trace to small pericardial effusion, no evidence of cardiac tamponade. 5. Aortic valve sclerosis with trivial aortic stenosis but no aortic regurgitation.
== END ==
LOC: M CARPUL 08:21
PROVIDERS: ATTEND Family Medicine
DX: I35.0 Nonrheumatic aortic (valve) stenosis (principal)

== ENCOUNTER → 2019-07-30 | Outpatient (CLI) | payer OTHER | LOC: M PLALAB 14:23 | PROVIDERS: ATTEND Family Medicine | DX: Z86.2 Personal history of diseases of the blood and blood-forming organs and certain disorders involving the immune mechanism (principal); Z53.9 Procedure and treatment not carried out, unspecified reason ==

== ENCOUNTER → 2019-07-31 | Outpatient (CLI) | payer OTHER ==
[2019-07-31 09:06] LABS: INR 1.11
[2019-07-31 09:07] LABS: CHOLESTEROL RISK RATIO 3.525 (<5); PARTIAL THROMBOPLASTIN TIME 26.2 SECONDS (25.0-38.4)
[2019-07-31 09:28] LABS: HEMOGLOBIN A1c 6.1 %
== END ==
LOC: M LAB 08:15
PROVIDERS: ATTEND Family Medicine
DX: Z86.2 Personal history of diseases of the blood and blood-forming organs and certain disorders involving the immune mechanism (principal); I10 Essential (primary) hypertension

== ENCOUNTER 2019-08-03 06:15 | Day surgery (SDC) | payer OTHER ==
[~2019-08-03] VITALS: Ht 162.6 cm; Wt 104.3 kg
[~2019-08-03 06:15] MED LIST changes: +LIDOCAINE 1% MDV 20ML VIAL SQ PRN
[2019-08-03] MEDS ORDERED: LR 1,000 ML IV ONE (06:30)
[2019-08-03] MEDS ORDERED: LIDOCAINE 2% 100MG/5ML SDV (FOR ANES.) As Ordered ONE (06:59)
[2019-08-03] MEDS ORDERED: propofoL 200 MG/20 ML VIAL As Ordered ONE (06:59)
[2019-08-03] MEDS ORDERED: fentaNYL 250 MCG/5 ML INJECTION (J3010) As Ordered ONE (06:59)
[2019-08-03] MEDS ORDERED: KETOROLAC 60 MG/2 ML VIAL As Ordered ONE (06:59)
[2019-08-03] MEDS ORDERED: MIDAZOLAM INJ 2MG/2ML VIAL (J2250 PER 1MG) As Ordered ONE (06:59)
[2019-08-03] MEDS ORDERED: ONDANSETRON 4MG/2ML VIAL As Ordered ONE (06:59)
[2019-08-03] MEDS ORDERED: dexameTHASONE 4 MG/ML 1ML VIAL (J1100 PER 1MG) As Ordered ONE (06:59)
[2019-08-03] MEDS ORDERED: ROCURONIUM BROMIDE 50 MG/5 ML VIAL As Ordered ONE (07:53)
[2019-08-03] MEDS ORDERED: SUCCINYLCHOLINE 100 MG/5 ML SYRINGE (J0330) As Ordered ONE (07:53)
[2019-08-03] MEDS ORDERED: SUGAMMADEX SODIUM 500 MG/5 ML VIAL (BRIDION) As Ordered ONE (08:05)
[2019-08-03] MEDS ORDERED: ePHEDrine SULFATE 25 MG/5 ML(5MG/ML) SYRINGE As Ordered ONE (08:12)
[2019-08-03] MEDS ORDERED: PERCOCET 5MG/325MG TAB PO PRN (08:45)
[2019-08-03] MEDS ORDERED: LR 1,000 ML IV SCH (08:45)
[2019-08-03] MEDS ORDERED: METOCLOPRAMIDE INJ 10MG/2ML VIAL (J2765 PER 1) IV PRN (08:45)
[2019-08-03] MEDS ORDERED: fentaNYL 100 MCG/2 ML INJECTION (J3010) IV PRN (08:45)
[2019-08-03] MEDS ORDERED: ONDANSETRON 4MG/2ML VIAL IV PRN (08:45)
[2019-08-03 09:25] VITALS: BP 163/91
--- NOTE | 2019-08-03 11:16 | ROOPDOC ---
[facility] Report Of Operation Report of Operation DATE OF PROCEDURE: 08/03/19 PREOPERATIVE DIAGNOSES: 1. Postmenopausal bleeding. POSTOPERATIVE DIAGNOSES: 1. Endometrial polyp. PROCEDURE PERFORMED: Hysteroscopy, dilation and curettage with MyoSure. SURGEON: Felicia Bernal MD CUFF STITCHER: None. ANESTHESIA: General ESTIMATED BLOOD LOSS: 5ml IV FLUIDS: 900 mL of lactated Ringer's solution. URINE OUTPUT: Not obtained. PREOPERATIVE ANTIBIOTICS: None. OPERATIVE FINDINGS: Patient with 3 anterior endometrial polyps, approximately 1 cm each. Bilateral ostia was visualized. Otherwise, normal appearing endometrial cavity. DESCRIPTION OF PROCEDURE: After informed consent was obtained written consent was reviewed, the patient brought to operating room where she was placed under general anesthesia. She was then placed in lithotomy position and was prepped and draped in normal sterile fashion. Time-out in the operating room was then performed identifying the patient, procedure be performed as well as drug allergies. [place] speculum was placed revealing the cervix. Anterior lip of the cervix grasped with a single-tooth tenaculum. The uterus then sounded to 9 cm. The cervix then sequentially dilated using Hanks dilators. Hysteroscope was then advanced through the cervical os and endometrial cavity was observed with the above-noted findings. MyoSure device was then placed in the hysteroscope and endometrial polyps where morcellated. Hysteroscope was then removed as well as the MyoSure. Sharp curette was then advanced through the cervical os to the level of the fundus and the uterus curetted in a 360 degree fashion. Tissue was obtained and this was sent to pathology for evaluation. The single-tooth tenaculum was then removed. Tenaculum sites were noted be hemostatic. The speculum was then removed. The patient was then taken out of lithotomy position, was awakened from general anesthesia and taken recovery in stable condition. FELICIA BERNAL MD. Aug 03, 2019 11:16
[2019-08-03] MEDS ORDERED: KETOROLAC 30 MG/ML 1ML VIAL IV PRN (14:00)
== END 2019-08-03 09:38 | disposition home or self-care (01) ==
LOC: M SDC 06:15
PROVIDERS: ATTEND Obstetrics & Gynecology
DX: N84.0 Polyp of corpus uteri (principal); I11.0 Hypertensive heart disease with heart failure; K44.9 Diaphragmatic hernia without obstruction or gangrene; K21.0 Gastro-esophageal reflux disease with esophagitis; Z86.2 Personal history of diseases of the blood and blood-forming organs and certain disorders involving the immune mechanism; R09.82 Postnasal drip; E66.01 Morbid (severe) obesity due to excess calories; Z68.39 Body mass index [BMI] 39.0-39.9, adult; I50.32 Chronic diastolic (congestive) heart failure; I27.20 Pulmonary hypertension, unspecified; I35.0 Nonrheumatic aortic (valve) stenosis; E53.8 Deficiency of other specified B group vitamins; Z79.899 Other long term (current) drug therapy; Z79.890 Hormone replacement therapy
CPT/HCPCS: 36415; 58558; 86850; 86900; 86901; 88305; J0330; J1100; J1885; J2250; J2405; J3010

== ENCOUNTER → 2020-01-31 | Outpatient (REF) | payer OTHER ==
[~2020-01-31] MED LIST changes: -LIDOCAINE 1% MDV 20ML VIAL SQ PRN; -LISI20TA19 PO; +LISI20TA35 PO
[2020-01-31 14:39] LABS: ALBUMIN 3.7 GM/DL (3.2-5.2); BILIRUBIN,TOTAL 0.7 MG/DL (0.2-1.0); CALCIUM LEVEL 9.1 MG/DL (8.8-10.2); CREATININE FOR GFR 0.99 MG/DL (0.55-1.30); GLOMERULAR FILTRATION RATE 59.9 (>45); POTASSIUM SERUM 4.1 MEQ/L (3.5-5.1); TOTAL PROTEIN 7.1 GM/DL (6.4-8.2)
[2020-02-07 14:09] LABS: E001-IgE Cat Epith/Dander < 0.10 kU/L (Class 0); E005-IgE Dog Dander < 0.10 kU/L (Class 0); M006-IgE Alternaria alternata < 0.10 kU/L (Class 0)
== END ==
LOC: M SFHCPLAZ 11:14
PROVIDERS: ATTEND Physician Assistant Medical
DX: I50.32 Chronic diastolic (congestive) heart failure (principal); J30.1 Allergic rhinitis due to pollen

== ENCOUNTER → 2020-01-31 | Outpatient (CLI) | payer OTHER ==
--- NOTE | 2020-01-31 11:44 | REPPI ---
INDICATION: CHF COMPARISON: 04/07/2012 TECHNIQUE: PA and lateral. FINDINGS: The mediastinum and cardiac silhouette are normal/stable. Large hiatal hernia again noted.. The lung covarrubias are clear and without acute consolidation, effusion, or pneumothorax. The skeletal structures are intact and normal. IMPRESSION: No acute cardiopulmonary process. Large hiatal hernia. <Electronically signed by Finn Cassidy > 01/31/20 [id number]
== END ==
LOC: M PLAIMG 11:23
PROVIDERS: ATTEND Physician Assistant Medical
DX: I50.32 Chronic diastolic (congestive) heart failure (principal)

== ENCOUNTER → 2020-04-16 | Outpatient (CLI) | payer MEDICARE, OTHER ==
[~2020-04-16] MED LIST changes: +CYAN500T14 PO; -CYAN500T8 PO
--- NOTE | 2020-04-16 14:36 | REPMRS ---
Patient History The patient states she has not had a clinical breast exam in over a year. Family history of pancreatic cancer at age 54 in sister. 3D TOMOSYNTHESIS WAS PERFORMED. [facility] lifetime risk for [facility] cancer is 6.6%. [place] breast density b. Digital Woman Screen Mammo: April 16, 2020 - Exam #: [id number] Bilateral CC and MLO view(s) were taken. Technologist: Madison Ohara, Technologist Prior study comparison: September 25, 2018, bilateral digital woman screen mammo performed at [facility]. May 16, 2017, digital woman screen mammo performed at [facility]. FINDINGS: There are scattered fibroglandular densities. There has been no change in the appearance of the mammogram from the prior studies. There is a mild amount of residual fibroglandular tissue which is fairly symmetric. There is no interval development of dominant mass, architectural distortion, or clustered microcalcification suggestive of malignancy. Assessment: BI-RADS/ACR category 1 mammogram. Negative Mammogram. Recommendation Routine screening mammogram in 1 year (for women over age 40). This mammogram was interpreted with the aid of an FDA-approved computer-aided dectection system. Electronically Signed By: Sukhjinder Cerrato MD 04/16/20 [id number]
== END ==
LOC: M WHC 13:27
PROVIDERS: ATTEND Physician Assistant Medical
DX: Z12.31 Encounter for screening mammogram for malignant neoplasm of breast (principal)

== ENCOUNTER → 2020-08-21 | Outpatient (CLI) | payer MEDICARE, OTHER ==
[2020-08-21 10:27] LABS: BASO % 0.4 % (0.0-1.0); EOS # 0.1 10^3/uL (0.0-0.5); EOS % 1.6 % (0.0-3.0); HEMATOCRIT 41.9 % (36.0-47.0); HEMOGLOBIN 13.2 g/dl (12.0-15.5); LYMPH # 1.4 10^3/uL (1.5-5.0); LYMPH % 20.3 % (24.0-44.0); MEAN CORPUSCULAR HEMOGLOBIN 27.7 pg (27.0-33.0); MEAN CORPUSCULAR HGB CONC 31.5 g/dl (32.0-36.5); MEAN CORPUSCULAR VOLUME 87.8 fl (80.0-96.0); MONO # 0.5 10^3/uL (0.0-0.8); MONO % 6.6 % (2.0-8.0); NEUTROPHILS # 4.8 10^3/uL (1.5-8.5); NEUTROPHILS % 70.7 % (36.0-66.0); PLATELET COUNT, AUTOMATED 197 10^3/uL (150-450); RED BLOOD COUNT 4.77 10^6/uL (4.00-5.40); WHITE BLOOD COUNT 6.8 10^3/uL (4.0-10.0)
[2020-08-21 11:01] LABS: ALBUMIN 3.6 GM/DL (3.2-5.2); ALT/SGPT 21 U/L (12-78); BILIRUBIN,TOTAL 0.9 MG/DL (0.2-1.0); BLOOD UREA NITROGEN 14 MG/DL (7-18); CALCIUM LEVEL 9.1 MG/DL (8.8-10.2); CARBON DIOXIDE LEVEL 31 MEQ/L (21-32); CHLORIDE LEVEL 109 MEQ/L (98-107); CHOLESTEROL LEVEL 172 MG/DL (<200); CHOLESTEROL RISK RATIO 2.819 (<5); CREATININE FOR GFR 0.84 MG/DL (0.55-1.30); GLOMERULAR FILTRATION RATE > 60.0 (>45); GLUCOSE, FASTING 100 MG/DL (70-100); HDL CHOLESTEROL 61 MG/DL (>40); LDL CHOLESTEROL 94 MG/DL (<100); NON-HDL-C 111 MG/DL; NT-PRO BNP 325 PG/ML (<125); POTASSIUM SERUM 3.9 MEQ/L (3.5-5.1); SODIUM LEVEL 142 MEQ/L (136-145); TOTAL PROTEIN 6.8 GM/DL (6.4-8.2); TRIGLYCERIDES LEVEL 84 MG/DL (<150)
== END ==
LOC: M LAB 09:20
PROVIDERS: ATTEND Physician Assistant Medical
DX: I11.0 Hypertensive heart disease with heart failure (principal); I50.32 Chronic diastolic (congestive) heart failure; Z13.220 Encounter for screening for lipoid disorders

== ENCOUNTER → 2020-12-09 | Outpatient (CLI) | payer MEDICARE, OTHER ==
[2020-12-09 12:27] LABS: ALBUMIN 3.5 GM/DL (3.2-5.2); ALT/SGPT 22 U/L (12-78); BILIRUBIN,TOTAL 0.9 MG/DL (0.2-1.0); BLOOD UREA NITROGEN 13 MG/DL (7-18); CALCIUM LEVEL 9.1 MG/DL (8.8-10.2); CARBON DIOXIDE LEVEL 32 MEQ/L (21-32); CHLORIDE LEVEL 107 MEQ/L (98-107); CREATININE FOR GFR 0.95 MG/DL (0.55-1.30); GLOMERULAR FILTRATION RATE > 60.0 (>45); GLUCOSE, FASTING 95 MG/DL (70-100); NT-PRO BNP 813 PG/ML (<125); POTASSIUM SERUM 4.3 MEQ/L (3.5-5.1); SODIUM LEVEL 142 MEQ/L (136-145); TOTAL PROTEIN 6.9 GM/DL (6.4-8.2)
== END ==
LOC: M LAB 10:59
PROVIDERS: ATTEND Physician Assistant Medical
DX: I50.32 Chronic diastolic (congestive) heart failure (principal)

== ENCOUNTER → 2021-03-26 | Outpatient (CLI) | payer MEDICARE, OTHER ==
[2021-03-26 11:15] LABS: ALBUMIN 3.3 GM/DL (3.2-5.2); ALT/SGPT 21 U/L (12-78); BLOOD UREA NITROGEN 13 MG/DL (7-18); CALCIUM LEVEL 9.3 MG/DL (8.8-10.2); CARBON DIOXIDE LEVEL 28 MEQ/L (21-32); CHLORIDE LEVEL 106 MEQ/L (98-107); CREATININE FOR GFR 0.82 MG/DL (0.55-1.30); GLOMERULAR FILTRATION RATE > 60.0 (>45); GLUCOSE, FASTING 112 MG/DL (70-100); NT-PRO BNP 547 PG/ML (<125); POTASSIUM SERUM 3.8 MEQ/L (3.5-5.1); SODIUM LEVEL 139 MEQ/L (136-145); TOTAL PROTEIN 7.2 GM/DL (6.4-8.2)
[2021-03-26 11:21] LABS: HEMOGLOBIN A1c 5.9 %
== END ==
LOC: M LAB 09:06
PROVIDERS: ATTEND Physician Assistant Medical
DX: R73.01 Impaired fasting glucose (principal); I50.32 Chronic diastolic (congestive) heart failure

== ENCOUNTER → 2021-06-02 | Outpatient (CLI) | payer MEDICARE, OTHER ==
[~2021-06-02] MED LIST changes: -OMEP-221 PO; +OMEP40CA5 PO
== END ==
LOC: M WHC 13:20
PROVIDERS: ATTEND Physician Assistant Medical
DX: Z12.31 Encounter for screening mammogram for malignant neoplasm of breast (principal); Z13.820 Encounter for screening for osteoporosis; Z78.0 Asymptomatic menopausal state; M85.89 Other specified disorders of bone density and structure, multiple sites

== ENCOUNTER → 2021-06-02 | Outpatient (CLI) | payer MEDICARE, OTHER ==
[2021-06-02 15:24] LABS: ALBUMIN 3.4 GM/DL (3.2-5.2); ALT/SGPT 20 U/L (12-78); BILIRUBIN,TOTAL 0.5 MG/DL (0.2-1.0); BLOOD UREA NITROGEN 16 MG/DL (7-18); CALCIUM LEVEL 8.8 MG/DL (8.8-10.2); CARBON DIOXIDE LEVEL 26 MEQ/L (21-32); CHLORIDE LEVEL 110 MEQ/L (98-107); CREATININE FOR GFR 0.97 MG/DL (0.55-1.30); GLOMERULAR FILTRATION RATE > 60.0 (>45); GLUCOSE, FASTING 123 MG/DL (70-100); NT-PRO BNP 311 PG/ML (<125); SODIUM LEVEL 142 MEQ/L (136-145); TOTAL PROTEIN 7.3 GM/DL (6.4-8.2)
== END ==
LOC: M LAB 14:28
PROVIDERS: ATTEND Physician Assistant Medical
DX: I50.32 Chronic diastolic (congestive) heart failure (principal)

== ENCOUNTER → 2021-07-08 | Outpatient (CLI) | payer MEDICARE, OTHER ==
[2021-07-08 13:33] LABS: BASO % 0.6 % (0.0-1.0); EOS # 0.1 10^3/uL (0.0-0.5); EOS % 1.9 % (0.0-3.0); HEMATOCRIT 42.4 % (36.0-47.0); HEMOGLOBIN 13.7 g/dl (12.0-15.5); LYMPH # 1.5 10^3/uL (1.5-5.0); LYMPH % 21.3 % (24.0-44.0); MEAN CORPUSCULAR HEMOGLOBIN 29.1 pg (27.0-33.0); MEAN CORPUSCULAR HGB CONC 32.3 g/dl (32.0-36.5); MONO # 0.6 10^3/uL (0.0-0.8); MONO % 7.9 % (2.0-8.0); NEUTROPHILS # 4.8 10^3/uL (1.5-8.5); NEUTROPHILS % 67.9 % (36.0-66.0); PLATELET COUNT, AUTOMATED 211 10^3/uL (150-450); RED BLOOD COUNT 4.71 10^6/uL (4.00-5.40)
[2021-07-08 14:27] LABS: ALBUMIN 3.6 GM/DL (3.2-5.2); BILIRUBIN,TOTAL 1.1 MG/DL (0.2-1.0); CALCIUM LEVEL 9.4 MG/DL (8.8-10.2); CHOLESTEROL RISK RATIO 3.367 (<5); CREATININE FOR GFR 0.99 MG/DL (0.55-1.30); GLOMERULAR FILTRATION RATE 59.7 (>45); POTASSIUM SERUM 4.2 MEQ/L (3.5-5.1); TOTAL PROTEIN 7.1 GM/DL (6.4-8.2)
[2021-07-08 18:33] LABS: HEMOGLOBIN A1c 6.1 %
== END ==
LOC: M RAD 12:00
PROVIDERS: ATTEND Physician Assistant Medical
DX: M16.12 Unilateral primary osteoarthritis, left hip (principal); M25.552 Pain in left hip; Z79.899 Other long term (current) drug therapy

== ENCOUNTER → 2021-09-03 | Outpatient (CLI) | payer MEDICARE, OTHER ==
[2021-09-03 13:11] LABS: ALBUMIN 3.6 GM/DL (3.2-5.2); CALCIUM LEVEL 9.8 MG/DL (8.8-10.2); CREATININE FOR GFR 1.02 MG/DL (0.55-1.30); GLOMERULAR FILTRATION RATE 57.7 (>45); MAGNESIUM LEVEL 2.3 MG/DL (1.8-2.4); PHOSPHORUS LEVEL 3.7 MG/DL (2.5-4.9); POTASSIUM SERUM 4.1 MEQ/L (3.5-5.1)
== END ==
LOC: M LAB 11:33
PROVIDERS: ATTEND Physician Assistant
DX: I11.0 Hypertensive heart disease with heart failure (principal); I50.32 Chronic diastolic (congestive) heart failure

== ENCOUNTER → 2021-09-24 | Outpatient (CLI) | payer MEDICARE, OTHER, MEDICAID ==
[2021-09-24 13:11] LABS: ALBUMIN 3.2 GM/DL (3.2-5.2); BLOOD UREA NITROGEN 27 MG/DL (7-18); CALCIUM LEVEL 9.6 MG/DL (8.8-10.2); CARBON DIOXIDE LEVEL 28 MEQ/L (21-32); CHLORIDE LEVEL 110 MEQ/L (98-107); CREATININE FOR GFR 0.96 MG/DL (0.55-1.30); GLOMERULAR FILTRATION RATE > 60.0 (>45); GLUCOSE, FASTING 111 MG/DL (70-100); NT-PRO BNP 385 PG/ML (<125); PHOSPHORUS LEVEL 3.7 MG/DL (2.5-4.9); POTASSIUM SERUM 4.1 MEQ/L (3.5-5.1); SODIUM LEVEL 144 MEQ/L (136-145)
== END ==
LOC: M LAB 11:18
PROVIDERS: ATTEND Physician Assistant
DX: I11.0 Hypertensive heart disease with heart failure (principal); I50.32 Chronic diastolic (congestive) heart failure

== ENCOUNTER → 2021-11-10 | Outpatient (CLI) | payer MEDICARE, OTHER, MEDICAID ==
[2021-11-10 13:02] LABS: ALBUMIN 3.5 GM/DL (3.2-5.2); BILIRUBIN,TOTAL 0.7 MG/DL (0.2-1.0); CALCIUM LEVEL 9.6 MG/DL (8.8-10.2); CREATININE FOR GFR 1.03 MG/DL (0.55-1.30); GLOMERULAR FILTRATION RATE 56.9 (>45); POTASSIUM SERUM 4.7 MEQ/L (3.5-5.1); TOTAL PROTEIN 6.6 GM/DL (6.4-8.2)
== END ==
LOC: M LAB 11:26
PROVIDERS: ATTEND Physician Assistant Medical
DX: I50.32 Chronic diastolic (congestive) heart failure (principal)

== ENCOUNTER → 2022-01-13 | Outpatient (CLI) | payer MEDICARE, OTHER ==
[2022-01-13 10:16] LABS: ALBUMIN 3.7 GM/DL (3.2-5.2); CALCIUM LEVEL 9.3 MG/DL (8.8-10.2); CREATININE FOR GFR 1.11 MG/DL (0.55-1.30); GLOMERULAR FILTRATION RATE 52.2 (>45); POTASSIUM SERUM 4.4 MEQ/L (3.5-5.1)
== END ==
LOC: M LAB 08:35
PROVIDERS: ATTEND Physician Assistant Medical
DX: I50.32 Chronic diastolic (congestive) heart failure (principal)

== ENCOUNTER → 2022-04-30 | Outpatient (CLI) | payer MEDICARE, OTHER, MEDICAID ==
[~2022-04-30] MED LIST changes: -MEDR10TA PO; +MEDR10TA9 PO
[2022-04-30 10:01] LABS: BASO % 0.4 % (0.0-1.0); EOS # 0.1 10^3/uL (0.0-0.5); EOS % 1.6 % (0.0-3.0); HEMATOCRIT 42.7 % (36.0-47.0); HEMOGLOBIN 13.7 g/dl (12.0-15.5); LYMPH # 1.7 10^3/uL (1.5-5.0); LYMPH % 21.6 % (24.0-44.0); MEAN CORPUSCULAR HGB CONC 32.1 g/dl (32.0-36.5); MEAN CORPUSCULAR VOLUME 90.3 fl (80.0-96.0); MONO # 0.5 10^3/uL (0.0-0.8); MONO % 6.5 % (2.0-8.0); NEUTROPHILS # 5.6 10^3/uL (1.5-8.5); NEUTROPHILS % 69.5 % (36.0-66.0); PLATELET COUNT, AUTOMATED 200 10^3/uL (150-450); RED BLOOD COUNT 4.73 10^6/uL (4.00-5.40)
[2022-04-30 10:34] LABS: MAGNESIUM LEVEL 1.7 MG/DL (1.8-2.4)
[2022-04-30 10:36] LABS: ALBUMIN 3.6 G/DL (3.2-5.2); BILIRUBIN,TOTAL 1.1 MG/DL (0.3-1.2); CALCIUM LEVEL 8.8 MG/DL (8.3-10.6); CHOLESTEROL RISK RATIO 3.83 (<5); CREATININE FOR GFR 1.06 MG/DL (0.55-1.30); HDL CHOLESTEROL 44.1 MG/DL (>40); LDL CHOLESTEROL 97.3 MG/DL (<100); TOTAL PROTEIN 6.8 G/DL (5.7-8.2)
[2022-04-30 10:37] LABS: FREE T4 1.29 NG/DL (0.89-1.76)
[2022-04-30 10:38] LABS: FERRITIN 47.2 NG/ML (7.3-270.7)
[2022-04-30 11:13] LABS: THYROID STIMULATING HORMONE 1.386 uIU/ML (0.55-4.78)
== END ==
LOC: M LAB 09:35
PROVIDERS: ATTEND Physician Assistant Medical
DX: I50.32 Chronic diastolic (congestive) heart failure (principal); Z86.2 Personal history of diseases of the blood and blood-forming organs and certain disorders involving the immune mechanism; I10 Essential (primary) hypertension; E53.8 Deficiency of other specified B group vitamins; K21.00 Gastro-esophageal reflux disease with esophagitis, without bleeding

== ENCOUNTER → 2022-06-04 | Outpatient (CLI) | payer MEDICARE, OTHER | LOC: M WHC 11:06 | PROVIDERS: ATTEND Physician Assistant Medical | DX: Z12.31 Encounter for screening mammogram for malignant neoplasm of breast (principal) ==

== ENCOUNTER → 2022-06-15 | Outpatient (CLI) | payer MEDICARE, OTHER | LOC: M RAD 11:55 | PROVIDERS: ATTEND Physician Assistant | DX: M25.561 Pain in right knee (principal) ==

== ENCOUNTER → 2022-09-17 | Outpatient (CLI) | payer MEDICARE, OTHER ==
[2022-09-17 11:26] LABS: ALBUMIN 3.7 G/DL (3.2-5.2); ALKALINE PHOSPHATASE 139 U/L (46-116); ALT/SGPT 14 U/L (7.0-40); AST/SGOT < 8 U/L (<34); BILIRUBIN,TOTAL 1.1 MG/DL (0.3-1.2); BLOOD UREA NITROGEN 18 MG/DL (9-23); CALCIUM LEVEL 8.9 MG/DL (8.3-10.6); CARBON DIOXIDE LEVEL 32 MMOL/L (20-31); CHLORIDE LEVEL 106 MMOL/L (98-107); CREATININE FOR GFR 1.12 MG/DL (0.55-1.30); GLOMERULAR FILTRATION RATE 51.5 (>45); GLUCOSE, FASTING 135 MG/DL (74-106); POTASSIUM SERUM 3.9 MMOL/L (3.5-5.1); SODIUM LEVEL 142 MMOL/L (136-145); TOTAL PROTEIN 6.5 G/DL (5.7-8.2)
[2022-09-17 11:27] LABS: PTH INTACT 96.7 PG/ML (18.5-88.0)
[2022-09-17 11:29] LABS: TOTAL 25(OH) VITAMIN D 55.8 NG/ML (20.0-100.0)
== END ==
LOC: M LAB 10:34
PROVIDERS: ATTEND Physician Assistant Medical
DX: E55.9 Vitamin D deficiency, unspecified (principal); I50.32 Chronic diastolic (congestive) heart failure; Z79.899 Other long term (current) drug therapy

== ENCOUNTER → 2023-01-14 | Outpatient (CLI) | payer MEDICARE, OTHER ==
[2023-01-14 09:51] LABS: BASO % 0.5 % (0.0-1.0); EOS # 0.1 10^3/uL (0.0-0.5); EOS % 1.5 % (0.0-3.0); HEMATOCRIT 40.5 % (36.0-47.0); HEMOGLOBIN 13.1 g/dl (12.0-15.5); LYMPH # 1.3 10^3/uL (1.5-5.0); LYMPH % 16.5 % (24.0-44.0); MEAN CORPUSCULAR HEMOGLOBIN 30.1 pg (27.0-33.0); MEAN CORPUSCULAR HGB CONC 32.3 g/dl (32.0-36.5); MEAN CORPUSCULAR VOLUME 93.1 fl (80.0-96.0); MONO # 0.5 10^3/uL (0.0-0.8); MONO % 5.9 % (2.0-8.0); NEUTROPHILS % 75.2 % (36.0-66.0); PLATELET COUNT, AUTOMATED 195 10^3/uL (150-450); RED BLOOD COUNT 4.35 10^6/uL (4.00-5.40)
[2023-01-14 09:54] LABS: HEMATOCRIT 40.4 % (36.0-47.0)
[2023-01-14 10:13] LABS: IRON (FE) 100 UG/DL (50-170)
[2023-01-14 10:15] LABS: ALBUMIN 3.5 G/DL (3.2-5.2); ALKALINE PHOSPHATASE 145 U/L (46-116); ALT/SGPT 14 U/L (7.0-40); AST/SGOT 12 U/L (<34); BLOOD UREA NITROGEN 20 MG/DL (9-23); CALCIUM LEVEL 9.1 MG/DL (8.3-10.6); CARBON DIOXIDE LEVEL 30 MMOL/L (20-31); CHLORIDE LEVEL 107 MMOL/L (98-107); CHOLESTEROL LEVEL 156 MG/DL (<200); CHOLESTEROL RISK RATIO 3.43 (<5); CREATININE FOR GFR 0.98 MG/DL (0.55-1.30); FERRITIN 78.5 NG/ML (7.3-270.7); GLOMERULAR FILTRATION RATE > 60.0 (>45); GLUCOSE, FASTING 137 MG/DL (74-106); HDL CHOLESTEROL 45.4 MG/DL (>40); LDL CHOLESTEROL 83.2 MG/DL (<100); NON-HDL-C 110.6 MG/DL; POTASSIUM SERUM 4.1 MMOL/L (3.5-5.1); SODIUM LEVEL 143 MMOL/L (136-145); TOTAL PROTEIN 6.4 G/DL (5.7-8.2); TRIGLYCERIDES LEVEL 137 MG/DL (<150); VITAMIN B12 LEVEL 906 PG/ML (211-911)
== END ==
LOC: M LAB 08:26
PROVIDERS: ATTEND Physician Assistant Medical
DX: E53.8 Deficiency of other specified B group vitamins (principal); E78.2 Mixed hyperlipidemia; I11.0 Hypertensive heart disease with heart failure; Z86.2 Personal history of diseases of the blood and blood-forming organs and certain disorders involving the immune mechanism

== ENCOUNTER → 2023-06-06 | Outpatient (CLI) | payer MEDICARE, OTHER | LOC: M WHC 10:29 | PROVIDERS: ATTEND Physician Assistant Medical | DX: Z12.31 Encounter for screening mammogram for malignant neoplasm of breast (principal) ==

== ENCOUNTER → 2023-07-08 | Outpatient (CLI) | payer MEDICARE, OTHER ==
[2023-07-08 10:41] LABS: BASO % 0.4 % (0.0-1.0); EOS # 0.2 10^3/uL (0.0-0.5); EOS % 2.2 % (0.0-3.0); HEMATOCRIT 40.3 % (36.0-47.0); HEMOGLOBIN 13.2 g/dl (12.0-15.5); LYMPH # 1.4 10^3/uL (1.5-5.0); LYMPH % 14.4 % (24.0-44.0); MEAN CORPUSCULAR HEMOGLOBIN 30.8 pg (27.0-33.0); MEAN CORPUSCULAR HGB CONC 32.8 g/dl (32.0-36.5); MEAN CORPUSCULAR VOLUME 93.9 fl (80.0-96.0); MONO # 0.7 10^3/uL (0.0-0.8); MONO % 7.3 % (2.0-8.0); NEUTROPHILS # 7.3 10^3/uL (1.5-8.5); NEUTROPHILS % 75.1 % (36.0-66.0); PLATELET COUNT, AUTOMATED 194 10^3/uL (150-450); RED BLOOD COUNT 4.29 10^6/uL (4.00-5.40); WHITE BLOOD COUNT 9.8 10^3/uL (4.0-10.0)
[2023-07-08 11:14] LABS: FERRITIN 123.2 NG/ML (7.3-270.7)
[2023-07-08 11:16] LABS: ALBUMIN 3.6 G/DL (3.2-5.2); BILIRUBIN,TOTAL 1.1 MG/DL (0.3-1.2); CALCIUM LEVEL 9.1 MG/DL (8.3-10.6); CREATININE FOR GFR 1.25 MG/DL (0.55-1.30); GLOMERULAR FILTRATION RATE 45.4 (>45); POTASSIUM SERUM 4.1 MMOL/L (3.5-5.1); TOTAL PROTEIN 6.5 G/DL (5.7-8.2)
== END ==
LOC: M LAB 09:42
PROVIDERS: ATTEND Physician Assistant Medical
DX: K21.9 Gastro-esophageal reflux disease without esophagitis (principal); Z86.2 Personal history of diseases of the blood and blood-forming organs and certain disorders involving the immune mechanism; E78.2 Mixed hyperlipidemia; E55.9 Vitamin D deficiency, unspecified

== ENCOUNTER → 2023-10-06 | Outpatient (CLI) | payer MEDICARE, OTHER | LOC: M WHC 14:18 | PROVIDERS: ATTEND Physician Assistant Medical | DX: R10.2 Pelvic and perineal pain (principal); N83.291 Other ovarian cyst, right side ==

== ENCOUNTER → 2023-10-06 | Outpatient (REF) | payer MEDICARE ==
[2023-10-06 16:38] LABS: AMORPHOUS SEDIMENT LARGE (NEGATIVE); APPEARANCE, URINE TURBID (CLEAR); BACTERIA, URINE AUTO 1+ (NEGATIVE); BILIRUBIN, URINE AUTO NEGATIVE (NEGATIVE); BLOOD, URINE BLOOD NEGATIVE (NEGATIVE); COLOR, URINE AMBER (YELLOW); GLUCOSE, URINE (UA) AUTO NEGATIVE (NEGATIVE); KETONE, URINE AUTO NEGATIVE (NEGATIVE); LEUKOCYTE ESTERASE, URINE AUTO 3+ (NEGATIVE); MUCUS, URINE SMALL (NEGATIVE); NITRITE, URINE AUTO NEGATIVE (NEGATIVE); PROTEIN, URINE AUTO NEGATIVE (NEGATIVE); RBC, URINE AUTO 5 /HPF (0-3); SPECIFIC GRAVITY URINE AUTO 1.025 (1.002-1.035); SQUAMOUS EPITHELIAL CELL UR AU 5 /HPF (0-6); TRANSITIONAL EPITHELIAL AUTO <1 /HPF; WBC, URINE AUTO 34 /HPF (0-3)
== END ==
LOC: M SFHCPLAZ 15:03
PROVIDERS: ATTEND Physician Assistant Medical
DX: R10.2 Pelvic and perineal pain (principal)

== ENCOUNTER → 2023-12-01 | Outpatient (REF) | payer MEDICARE ==
[2023-12-01 18:32] LABS: APPEARANCE, URINE HAZY (CLEAR); BACTERIA, URINE AUTO NEGATIVE (NEGATIVE); BILIRUBIN, URINE AUTO NEGATIVE (NEGATIVE); BLOOD, URINE BLOOD NEGATIVE (NEGATIVE); COLOR, URINE YELLOW (YELLOW); GLUCOSE, URINE (UA) AUTO NEGATIVE (NEGATIVE); KETONE, URINE AUTO NEGATIVE (NEGATIVE); LEUKOCYTE ESTERASE, URINE AUTO 2+ (NEGATIVE); MUCUS, URINE SMALL (NEGATIVE); NITRITE, URINE AUTO NEGATIVE (NEGATIVE); PROTEIN, URINE AUTO NEGATIVE (NEGATIVE); RBC, URINE AUTO 0 /HPF (0-3); SPECIFIC GRAVITY URINE AUTO 1.023 (1.002-1.035); SQUAMOUS EPITHELIAL CELL UR AU 4 /HPF (0-6); UROBILINOGEN, URINE AUTO 0.2 mg/dL (0.0-2.0); WBC, URINE AUTO 4 /HPF (0-3)
== END ==
LOC: M SMT 16:47
PROVIDERS: ATTEND Specialist
DX: N81.4 Uterovaginal prolapse, unspecified (principal); Z79.899 Other long term (current) drug therapy

== ENCOUNTER → 2023-12-28 | Outpatient (CLI) | payer MEDICARE | LOC: M RAD 11:45 | PROVIDERS: ATTEND Specialist | DX: N20.0 Calculus of kidney (principal); N26.1 Atrophy of kidney (terminal) ==

== ENCOUNTER → 2023-12-28 | Outpatient (CLI) | payer MEDICARE ==
[2023-12-28 12:56] LABS: BASO % 0.2 % (0.0-1.0); EOS % 0.3 % (0.0-3.0); HEMATOCRIT 39.4 % (36.0-47.0); HEMOGLOBIN 12.9 g/dl (12.0-15.5); LYMPH # 0.4 10^3/uL (1.5-5.0); LYMPH % 4.6 % (24.0-44.0); MEAN CORPUSCULAR HEMOGLOBIN 30.8 pg (27.0-33.0); MEAN CORPUSCULAR HGB CONC 32.7 g/dl (32.0-36.5); MONO # 0.5 10^3/uL (0.0-0.8); MONO % 5.3 % (2.0-8.0); NEUTROPHILS # 7.7 10^3/uL (1.5-8.5); NEUTROPHILS % 89.1 % (36.0-66.0); PLATELET COUNT, AUTOMATED 175 10^3/uL (150-450); RED BLOOD COUNT 4.19 10^6/uL (4.00-5.40); WHITE BLOOD COUNT 8.7 10^3/uL (4.0-10.0)
[2023-12-28 13:15] LABS: INR 1.07; PARTIAL THROMBOPLASTIN TIME 25.9 SECONDS (24.8-34.2); PROTHROMBIN TIME 13.6 SECONDS (12.5-14.5)
[2023-12-28 13:30] LABS: FERRITIN 156.1 NG/ML (7.3-270.7)
== END ==
LOC: M LAB 11:47
PROVIDERS: ATTEND Physician Assistant Medical
DX: I11.0 Hypertensive heart disease with heart failure (principal); N81.4 Uterovaginal prolapse, unspecified; Z86.2 Personal history of diseases of the blood and blood-forming organs and certain disorders involving the immune mechanism; I50.32 Chronic diastolic (congestive) heart failure

== ENCOUNTER → 2024-04-20 | Outpatient (CLI) | payer MEDICARE, MEDICAID ==
[~2024-04-20] MED LIST changes: -LIDO1CRE2 TOP; +LIDO4CRE12 TOP
[2024-04-20 13:41] LABS: BASO % 0.6 % (0.0-1.0); EOS # 0.1 10^3/uL (0.0-0.5); EOS % 1.9 % (0.0-3.0); HEMATOCRIT 41.2 % (36.0-47.0); HEMOGLOBIN 13.4 g/dl (12.0-15.5); LYMPH # 1.6 10^3/uL (1.5-5.0); LYMPH % 21.4 % (24.0-44.0); MEAN CORPUSCULAR HGB CONC 32.5 g/dl (32.0-36.5); MEAN CORPUSCULAR VOLUME 92.2 fl (80.0-96.0); MONO # 0.5 10^3/uL (0.0-0.8); MONO % 6.6 % (2.0-8.0); NEUTROPHILS % 69.1 % (36.0-66.0); PLATELET COUNT, AUTOMATED 210 10^3/uL (150-450); RED BLOOD COUNT 4.47 10^6/uL (4.00-5.40); WHITE BLOOD COUNT 7.3 10^3/uL (4.0-10.0)
[2024-04-20 13:54] LABS: INR 0.96; PARTIAL THROMBOPLASTIN TIME 28.1 SECONDS (24.8-34.2); PROTHROMBIN TIME 13.1 SECONDS (12.5-14.5)
[2024-04-20 14:07] LABS: CALCIUM LEVEL 9.2 MG/DL (8.3-10.6); CREATININE FOR GFR 1.23 MG/DL (0.55-1.30); GLOMERULAR FILTRATION RATE 46.1 (>45); POTASSIUM SERUM 4.3 MMOL/L (3.5-5.1)
[2024-04-20 14:09] LABS: FERRITIN 95.3 NG/ML (7.3-270.7)
== END ==
LOC: M LAB 11:38
PROVIDERS: ATTEND Physician Assistant Medical
DX: I11.0 Hypertensive heart disease with heart failure (principal); Z86.2 Personal history of diseases of the blood and blood-forming organs and certain disorders involving the immune mechanism

== ENCOUNTER → 2024-06-15 | Outpatient (CLI) | payer MEDICARE, MEDICAID ==
[~2024-06-15] MED LIST changes: +BISO5TAB14 PO; +FLUO-290 PO; +SPIR-10 PO; +TELM1TAB37 PO; +TORS20TA2 PO
== END ==
LOC: M WHC 13:24
PROVIDERS: ATTEND Physician Assistant Medical
DX: Z12.31 Encounter for screening mammogram for malignant neoplasm of breast (principal)

== ENCOUNTER → 2024-07-30 | Outpatient (CLI) | payer MEDICARE, MEDICAID ==
[2024-07-30 13:54] LABS: BASO # 0.1 10^3/uL (0.0-0.2); BASO % 0.6 % (0.0-1.0); EOS # 0.1 10^3/uL (0.0-0.5); EOS % 1.3 % (0.0-3.0); HEMATOCRIT 39.7 % (36.0-47.0); HEMOGLOBIN 12.9 g/dl (12.0-15.5); LYMPH # 1.8 10^3/uL (1.5-5.0); LYMPH % 22.8 % (24.0-44.0); MEAN CORPUSCULAR HEMOGLOBIN 29.9 pg (27.0-33.0); MEAN CORPUSCULAR HGB CONC 32.5 g/dl (32.0-36.5); MEAN CORPUSCULAR VOLUME 91.9 fl (80.0-96.0); MONO # 0.5 10^3/uL (0.0-0.8); MONO % 6.1 % (2.0-8.0); NEUTROPHILS # 5.5 10^3/uL (1.5-8.5); NEUTROPHILS % 68.6 % (36.0-66.0); PLATELET COUNT, AUTOMATED 210 10^3/uL (150-450); RED BLOOD COUNT 4.32 10^6/uL (4.00-5.40)
[2024-07-30 14:24] LABS: BILIRUBIN,TOTAL 0.9 MG/DL (0.3-1.2); CALCIUM LEVEL 9.2 MG/DL (8.3-10.6); CHOLESTEROL RISK RATIO 4.37 (<5); CREATININE FOR GFR 1.27 MG/DL (0.55-1.30); GLOMERULAR FILTRATION RATE 45.8 (>45); HDL CHOLESTEROL 41.1 MG/DL (>40); LDL CHOLESTEROL 93.5 MG/DL (<100); NON-HDL-C 138.9 MG/DL; POTASSIUM SERUM 4.1 MMOL/L (3.5-5.1); PTH INTACT 178.3 PG/ML (18.5-88.0); TOTAL PROTEIN 6.8 G/DL (5.7-8.2)
[2024-07-30 14:25] LABS: TOTAL 25(OH) VITAMIN D 53.5 NG/ML (20.0-100.0)
== END ==
LOC: M LAB 12:03
PROVIDERS: ATTEND Physician Assistant Medical
DX: E55.9 Vitamin D deficiency, unspecified (principal); E53.8 Deficiency of other specified B group vitamins; I11.0 Hypertensive heart disease with heart failure; E78.2 Mixed hyperlipidemia; I50.32 Chronic diastolic (congestive) heart failure

== ENCOUNTER → 2024-08-23 | Outpatient (CLI) | payer MEDICARE, MEDICAID ==
[~2024-08-23] MED LIST changes: +COLA100C5 PO
[2024-08-23 14:03] LABS: HEMATOCRIT 38.1 % (36.0-47.0); HEMOGLOBIN 12.5 g/dl (12.0-15.5); MEAN CORPUSCULAR HGB CONC 32.8 g/dl (32.0-36.5); MEAN CORPUSCULAR VOLUME 94.5 fl (80.0-96.0); PLATELET COUNT, AUTOMATED 219 10^3/uL (150-450); RED BLOOD COUNT 4.03 10^6/uL (4.00-5.40); WHITE BLOOD COUNT 7.9 10^3/uL (4.0-10.0)
[2024-08-23 14:04] LABS: APPEARANCE, URINE CLEAR (CLEAR); BACTERIA, URINE AUTO 1+ (NEGATIVE); BILIRUBIN, URINE AUTO NEGATIVE (NEGATIVE); BLOOD, URINE BLOOD NEGATIVE (NEGATIVE); COLOR, URINE STRAW (YELLOW); GLUCOSE, URINE (UA) AUTO NEGATIVE (NEGATIVE); KETONE, URINE AUTO NEGATIVE (NEGATIVE); LEUKOCYTE ESTERASE, URINE AUTO 3+ (NEGATIVE); MUCUS, URINE SMALL (NEGATIVE); NITRITE, URINE AUTO NEGATIVE (NEGATIVE); PROTEIN, URINE AUTO NEGATIVE (NEGATIVE); RBC, URINE AUTO 2 /HPF (0-3); SPECIFIC GRAVITY URINE AUTO 1.006 (1.002-1.035); SQUAMOUS EPITHELIAL CELL UR AU 2 /HPF (0-6); UROBILINOGEN, URINE AUTO 0.2 mg/dL (0.0-2.0); WBC, URINE AUTO 4 /HPF (0-3)
[2024-08-23 14:29] LABS: CALCIUM LEVEL 9.2 MG/DL (8.3-10.6); CREATININE FOR GFR 1.35 MG/DL (0.55-1.30); GLOMERULAR FILTRATION RATE 42.5 (>45); POTASSIUM SERUM 4.3 MMOL/L (3.5-5.1)
== END ==
LOC: M LAB 13:27
PROVIDERS: ATTEND Physician Assistant Medical
DX: Z01.818 Encounter for other preprocedural examination (principal)

== ENCOUNTER 2024-08-27 10:26 | Observation (INO) | payer MEDICARE, MEDICAID ==
[~2024-08-27] VITALS: Ht 162.6 cm; Wt 97.3 kg
[~2024-08-27 10:26] MED LIST changes: -COLA100C5 PO
[2024-08-27 10:58] LABS: HEMOGLOBIN 12.5 g/dl (12.0-15.5); MEAN CORPUSCULAR HEMOGLOBIN 30.9 pg (27.0-33.0); MEAN CORPUSCULAR HGB CONC 32.1 g/dl (32.0-36.5); MEAN CORPUSCULAR VOLUME 96.5 fl (80.0-96.0); PLATELET COUNT, AUTOMATED 219 10^3/uL (150-450); RED BLOOD COUNT 4.04 10^6/uL (4.00-5.40); WHITE BLOOD COUNT 6.8 10^3/uL (4.0-10.0)
[2024-08-27] MEDS ORDERED: propofoL 200 MG/20 ML VIAL As Ordered ONE (11:13)
[2024-08-27] MEDS ORDERED: ROCURONIUM BROMIDE 50MG/5ML VIAL As Ordered ONE (11:13)
[2024-08-27] MEDS ORDERED: LIDOCAINE 2% 100MG/5ML SDV (FOR ANES.) As Ordered ONE (11:13)
[2024-08-27] MEDS ORDERED: fentaNYL 250 MCG/5 ML INJECTION As Ordered ONE (11:14)
[2024-08-27] MEDS ORDERED: MIDAZOLAM INJ 2MG/2ML VIAL As Ordered ONE (11:14)
[2024-08-27] MEDS ORDERED: LR 1,000 ML IV SCH ×2 (11:15→16:25)
[2024-08-27] MEDS ORDERED: LACRILUBE (AKWA TEARS) OPHTH OINT 3.5GM As Ordered ONE (11:42)
[2024-08-27] MEDS: ceFAZolin SOD 2 GM IV ONCE IV ONE (12:59)
[2024-08-27] MEDS ORDERED: ACETAMINOPHEN 1000MG/100ML IV BAG As Ordered ONE (13:15)
[2024-08-27] MEDS ORDERED: SUGAMMADEX SODIUM 500 MG/5 ML VIAL As Ordered ONE (13:45)
[2024-08-27] MEDS ORDERED: METOCLOPRAMIDE INJ 10MG/2ML VIAL As Ordered ONE (13:45)
[2024-08-27] MEDS ORDERED: KETOROLAC 30 MG/ML 1ML VIAL As Ordered ONE (13:45)
[2024-08-27] MEDS ORDERED: ONDANSETRON 4MG 2ML VIAL As Ordered ONE (13:45)
[2024-08-27] MEDS ORDERED: HYDROmorphone HCL 2MG/ML 1ML VIAL As Ordered ONE (14:40)
[2024-08-27] MEDS: GENTAMICIN SULF 80MG/2ML VIAL As Ordered ONE (15:00)
[2024-08-27] MEDS: FLUORESCEIN 10% (100MG/ML) 5ML VIAL As Ordered ONE (15:12)
[2024-08-27] MEDS: BACITRACIN OINTMENT 30GM TUBE As Ordered ONE (16:00)
[2024-08-27] MEDS ORDERED: fentaNYL 100 MCG/2 ML INJECTION IV PRN (16:25)
[2024-08-27] MEDS ORDERED: oxyCODONE 5MG TAB PO PRN (16:25)
[2024-08-27] MEDS ORDERED: HYDROMORPHONE HCL 0.5 MG/ 0.5 ML SYRINGE IV PRN (16:25)
[2024-08-27] MEDS ORDERED: ONDANSETRON 4MG 2ML VIAL IV PRN (16:25)
[2024-08-27 18:05] VITALS: BP 137/67; TEMP 97.1; O2SAT 94
[2024-08-27 18:38] LABS: HEMATOCRIT 38.7 % (36.0-47.0); HEMOGLOBIN 12.7 g/dl (12.0-15.5); MEAN CORPUSCULAR HEMOGLOBIN 31.1 pg (27.0-33.0); MEAN CORPUSCULAR HGB CONC 32.8 g/dl (32.0-36.5); MEAN CORPUSCULAR VOLUME 94.9 fl (80.0-96.0); PLATELET COUNT, AUTOMATED 181 10^3/uL (150-450); RED BLOOD COUNT 4.08 10^6/uL (4.00-5.40); WHITE BLOOD COUNT 11.2 10^3/uL (4.0-10.0)
[2024-08-27 18:40] VITALS: BP 154/70; TEMP 98.5; O2SAT 100
[2024-08-27] MEDS ORDERED: HOME MED LIST COMPLETE! XX SCH (18:55)
[2024-08-27 19:09] LABS: CALCIUM LEVEL 8.7 MG/DL (8.3-10.6); CREATININE FOR GFR 1.04 MG/DL (0.55-1.30); GLOMERULAR FILTRATION RATE 58.2 (>45); POTASSIUM SERUM 4.1 MMOL/L (3.5-5.1)
[2024-08-27 19:10] VITALS: BP 147/67; TEMP 97.8; O2SAT 100
[2024-08-27 20:20] VITALS: BP 119/58; TEMP 98.2; O2SAT 96
[2024-08-27] MEDS: LR 1,000 ML IV SCH (20:31)
[2024-08-27 21:20] VITALS: BP 122/66; TEMP 97.8; O2SAT 96
[2024-08-28] VITALS: BP 125/61; TEMP 97.9; O2SAT 95
[2024-08-28 04:00] VITALS: BP 133/63; TEMP 97.6; O2SAT 96
[2024-08-28] MEDS: PERCOCET 5MG/325MG TAB PO PRN (05:40)
[2024-08-28 08:06] VITALS: BP 142/64; TEMP 98.5; O2SAT 96
[2024-08-28] MEDS: FLUoxetine 10 MG CAP PO SCH (08:47)
[2024-08-28] MEDS: TORSEMIDE 20 MG TAB PO SCH (08:48)
[2024-08-28] MEDS: OMEPRAZOLE 20MG CAP PO SCH (08:48)
[2024-08-28] MEDS: TELMISARTAN 20 MG TAB PO SCH (08:48)
[2024-08-28] MEDS: SPIRONOLACTONE 25 MG TAB PO SCH (08:49)
[2024-08-28] MEDS ORDERED: COLA100C5 PO (10:24)
== END 2024-08-28 12:55 | disposition home or self-care (01) ==
LOC: M SDC 10:26 → M PED 10:27
PROVIDERS: ADMIT Specialist; ATTEND Specialist
DX: N80.03 Adenomyosis of the uterus (principal); N81.4 Uterovaginal prolapse, unspecified; N84.0 Polyp of corpus uteri; I11.0 Hypertensive heart disease with heart failure; I50.32 Chronic diastolic (congestive) heart failure; R00.1 Bradycardia, unspecified; K21.9 Gastro-esophageal reflux disease without esophagitis; Z79.899 Other long term (current) drug therapy; R32 Unspecified urinary incontinence; Z98.51 Tubal ligation status
CPT/HCPCS: 36415; 57260; 57267; 58571; 80048; 85027; 86850; 86900; 86901; 88307; C1762; G0378; J0131; J0665; J0690; J1100; J1171; J1580; J1885; J2250; J2405; J2765; J3010

== ENCOUNTER → 2024-11-05 | Outpatient (CLI) | payer MEDICARE, MEDICAID ==
[~2024-11-05] MED LIST changes: +COLA100C5 PO
[2024-11-05 11:50] LABS: BASO # 0.1 10^3/uL (0.0-0.2); BASO % 0.6 % (0.0-1.0); EOS # 0.1 10^3/uL (0.0-0.5); EOS % 1.7 % (0.0-3.0); LYMPH # 1.8 10^3/uL (1.5-5.0); LYMPH % 22.6 % (24.0-44.0); MONO # 0.7 10^3/uL (0.0-0.8); MONO % 8.8 % (2.0-8.0); NEUTROPHILS # 5.3 10^3/uL (1.5-8.5); NEUTROPHILS % 65.9 % (36.0-66.0); PLATELET COUNT, AUTOMATED 233 10^3/uL (150-450)
[2024-11-05 12:25] LABS: ALT/SGPT 14.0 U/L (7.0-40); AST/SGOT 20.0 U/L (<34); CALCIUM LEVEL 9.6 MG/DL (8.3-10.6); CARBON DIOXIDE LEVEL 25.0 MMOL/L (20-31); CHLORIDE LEVEL 103.0 MMOL/L (98-107); CREATININE FOR GFR 1.4 MG/DL (0.55-1.30); GLOMERULAR FILTRATION RATE 40.5 (>39); POTASSIUM SERUM 4.2 MMOL/L (3.5-5.1); SODIUM LEVEL 142.0 MMOL/L (136-145)
== END ==
LOC: M RAD 10:41
PROVIDERS: ATTEND Physician Assistant Medical
DX: M54.41 Lumbago with sciatica, right side (principal); I11.0 Hypertensive heart disease with heart failure; I50.32 Chronic diastolic (congestive) heart failure

== ENCOUNTER → 2025-01-08 | Outpatient (RCR) | payer MEDICARE, MEDICAID | LOC: M PT 12-18 12:51 | PROVIDERS: ATTEND Physician Assistant Medical | DX: M54.41 Lumbago with sciatica, right side (principal); N81.89 Other female genital prolapse ==

== ENCOUNTER 2025-01-30 09:54 | Outpatient (RCR) | payer MEDICARE, MEDICAID | END 2025-02-08 | LOC: M PT 09:54 | PROVIDERS: ATTEND Physician Assistant Medical | DX: M54.41 Lumbago with sciatica, right side (principal); N81.89 Other female genital prolapse ==